=== PATIENT | male | born 1960 | race Caucasian/White ===

== ENCOUNTER → 2016-05-31 | Outpatient (CLI) | payer BC ==
[2016-05-31 09:18] VITALS: BMI 34.7
== END | disposition home or self-care (01) ==
LOC: MNTWWP 08:47
PROVIDERS: ATTEND Internal Medicine
DX: E66.9 Obesity, unspecified (principal); Z68.34 Body mass index [BMI] 34.0-34.9, adult

== ENCOUNTER → 2018-03-14 | Outpatient (CLI) | payer OTHER ==
--- NOTE | 2018-03-15 07:40 | US ---
EXAMINATION TYPE: US kidneys/renal and bladder DATE OF EXAM: 03/14/2018 COMPARISON: NONE CLINICAL HISTORY: R31.21 MICROSCOPIC HEMATURIA. EXAM MEASUREMENTS: Right Kidney: 12.2 x 6.4 x 5.1 cm Left Kidney: 12.1 x 4.7 x 5.1 cm Right Kidney: multiple echogenic foci largest measuring 0.5 x 0.3 x 0.5cm, probable kidney stones Left Kidney: tiny echogenic foci, possible stones vs calcified arteries Bladder: wnl Bilateral Jets seen: Yes Normal Post Void Residual: There is no evidence for hydronephrosis at this point in time. No masses are identified. The urinar y bladder is anechoic. Bilateral ureteral jets are seen. IMPRESSION: Bilateral nonobstructing nephrolithiasis.
== END | disposition home or self-care (01) ==
LOC: RADUSWWP 15:54
PROVIDERS: ATTEND Internal Medicine
DX: N20.0 Calculus of kidney (principal)
CPT/HCPCS: 76770

== ENCOUNTER → 2019-04-23 | Outpatient (CLI) | payer OTHER ==
--- NOTE | 2019-04-23 09:44 | CT ---
EXAMINATION TYPE: CT urogram wo/w con DATE OF EXAM: 04/23/2019 COMPARISON: Renal ultrasound March 14, 2018. HISTORY: hematuria CT DLP: 2820 mGycm, Automated Exposure Control for Dose Reduction was Utilized. CONTRAST: CT scan of the abdomen and pelvis is performed without oral and without and with IV Contrast, patient injected with 100 mL of Isovue 300. Urogram protocol with 3-D reconstructed images on independent Wo rkstation and reviewed. FINDINGS: KUB: Noncontrast images show 9 mm calculus lower pole level coronal image 84. Postcontrast images maurice w symmetrical medullary uptake and excretion without hydronephrosis seen bilaterally. Occasional punc hernandez hypodense focus right kidney for reference coronal image 94 series 16, 2 lesions are present, th ey are too small to further characterize but presumed Benign. Visualized portion of both ureters show no suspicious dilatation calculus. Bladder within normal limits in the anterior midline of the pelvi s. LUNG BASES: No significant abnormality is appreciated. LIVER/GB: There is large roughly 2.6 cm calculus in nondistended gallbladder. Forming inflammatory ch leonidas noted. PANCREAS: No significant abnormality is seen. SPLEEN: No significant abnormality is seen. ADRENALS: No significant abnormality is seen. BOWEL: Surgical sutures from appendectomy at base of cecum. PROSTATE/SEMINAL VESICLES: Enlarged prostate gland consistent with BPH. LYMPH NODES: No greater than 1cm abdominal or pelvic lymph nodes are appreciated. OSSEOUS STRUCTURES: No significant abnormality is seen. OTHER: Asymmetric small fat-containing right inguinal hernia. IMPRESSION: 1. There is a 9 mm nonobstructing calculus lower pole right kidney likely accounting for patient's sy mptoms of hematuria.
== END | disposition home or self-care (01) ==
LOC: RADCTMAIN 08:17
PROVIDERS: ATTEND Urology
DX: N20.0 Calculus of kidney (principal); Z88.3 Allergy status to other anti-infective agents
CPT/HCPCS: 74178; 74400

== ENCOUNTER → 2019-05-11 | Outpatient (CLI) | payer OTHER ==
[2019-05-11 10:28] LABS: Basophils # (A) 0.1 k/uL (0-0.2); Basophils % (A) 1 %; Eosinophils # (A) 0.1 k/uL (0-0.7); Eosinophils % (A) 2 %; HCT 45.6 % (39.0-53.0); HGB 15.5 gm/dL (13.0-17.5); Lymphocytes # (A) 1.3 k/uL (1.0-4.8); Lymphocytes % (A) 23 %; MCH 30.1 pg (25.0-35.0); MCV 88.4 fL (80.0-100.0); Mean Platelet Volume 7.2; Monocytes # (A) 0.4 k/uL (0-1.0); Monocytes % (A) 7 %; Neutrophils # (A) 3.8 k/uL (1.3-7.7); Neutrophils % (A) 65 %; Platelet Count 228 k/uL (150-450); RBC 5.16 m/uL (4.30-5.90); WBC 5.7 k/uL (3.8-10.6)
[2019-05-11 10:30] LABS: African American GFR (CKD) >90 (>60 ml/min/1.73 sqM); Anion Gap 6 mmol/L; Blood Urea Nitrogen 22 mg/dL (9-20); Carbon Dioxide 26 mmol/L (22-30); Chloride 109 mmol/L (98-107); Non-African American GFR(CKD) 84 (>60 ml/min/1.73 sqM); Potassium 4.1 mmol/L (3.5-5.1); Sodium 141 mmol/L (137-145)
== END | disposition home or self-care (01) ==
LOC: LABPAT 09:47
PROVIDERS: ATTEND Urology
DX: Z01.812 Encounter for preprocedural laboratory examination (principal); N20.0 Calculus of kidney
CPT/HCPCS: 36415; 80051; 82565; 84520; 85025

== ENCOUNTER 2019-05-13 12:03 | Day surgery (SDC) | payer OTHER ==
[2019-05-10 09:58] VITALS: BMI 31.7
--- NOTE | 2019-05-10 12:40 | P.HPIHPCON ---
History of Present Illness H&P Date: 05/13/19 Chief Complaint: right renal calculi Mr. Jacobs is 58 yo male with hx of 9mm right sided lower pole renal calculi, That was seen on CT Urogram for microscopic hematuria. I discussed with him the option of observation vs ESWl vs ureteroscopy. He elected to proceed with right sided ESWL. I discussed with him the risk of bleeding, infection, renal hematoma. Also discussed risk from anesthesia which included heart attack, stroke and blood clots. He understood all risks and agreed to proceed with R sided ESWL Consent for Procedure: I have explained the operation/procedure to the patient, including the risks, benefits, side effects, alternative therapies (including not receiving the proposed treatment or service), the likelihood of the patient achieving his/her goals, and potential recuperation problems for the procedure/sedation/analgesia, as well as any blood products, if indicated. I also explained to the patient the risks, benefits and side effects of the alternatives, as well as the risks related to not receiving the proposed procedure, care, treatment, or services. - Constitutional Constitutional: Denies chills, Denies fever - Respiratory Respiratory: Denies cough, Denies dyspnea - Gastrointestinal Gastrointestinal: Denies abdominal pain Past Medical History Past Medical History: Hypertension, Pneumonia, Prostate Disorder Additional Past Medical History / Comment(s): CROHNS DISEASE History of Any Multi-Drug Resistant Organisms: None Reported Past Surgical History: Bowel Resection Past Anesthesia/Blood Transfusion Reactions: No Reported Reaction Past Psychological History: No Psychological Hx Reported Smoking Status: Former smoker Past Alcohol Use History: Rare Past Drug Use History: None Reported - Past Family History Mother Family Medical History: Deep Vein Thrombosis (DVT) Father Family Medical History: Congestive Heart Failure (CHF) Brother(s) Family Medical History: CVA/TIA Medications and Allergies Home Medications Medication Instructions Recorded Confirmed Type Cetirizine HCl 10 mg PO DAILY 07/08/14 05/10/19 History Nf-Losartan Dose Unknown 1 tab PO DAILY 05/10/19 05/10/19 History Tamsulosin HCl [Flomax] 0.4 mg PO DAILY 05/10/19 05/10/19 History Allergies Allergy/AdvReac Type Severity Reaction Status Date / Time Iodinated Contrast Media Allergy Rash/Hives Verified 05/10/19 09:51 Surgical - Exam - General well developed, well nourished, no distress, no pain - Respiratory normal expansion, normal respiratory effort - Abdomen Abdomen: soft, non tender, no distended - Psychiatric oriented to time, oriented to person, oriented to place Assessment and Plan Assessment: 58 yo male with hx of 9 mm right sided renal calculi -OR for R ESWL
[2019-05-13 12:33] VITALS: TEMP 97
[2019-05-13] MEDS ORDERED: LACTATED RINGERS 1,000 ML IV ONE (12:33)
--- NOTE | 2019-05-13 12:34 | XR ---
KUB HISTORY: Preprocedure lithotripsy, renal stone Frontal KUB and 2 images correlated to prior CT 04/23/2019 Calcified gallstone present in the right upper quadrant. The posterior nonobstructive calculus within the inferior pole right kidney is again seen and measures approximately 1 cm in transverse dimension . Lung bases are clear. No evident bowel obstruction or pneumoperitoneum. IMPRESSION: Right-sided nephrolithiasis.
[2019-05-13] MEDS ORDERED: fentaNYL (PF) 50 MCG/ML 2 ML AMP ONE (12:47)
[2019-05-13] MEDS ORDERED: PROPOFOL 10 MG/ML 20 ML VIAL IV ONE (12:47)
[2019-05-13] MEDS ORDERED: SUCCINYLCHOLINE CHLORIDE 100 MG/5 ML SYR IV ONE (12:47)
[2019-05-13] MEDS ORDERED: MIDAZOLAM 2 MG/2 ML VIAL ONE (12:47)
[2019-05-13] MEDS ORDERED: KETAMINE 10 MG/ML 20 ML VIAL ONE (12:47)
--- NOTE | 2019-05-13 13:38 | P.OP ---
Date of Procedure: 05/13/19 Preoperative Diagnosis: Right renal calculus Postoperative Diagnosis: Right renal calculus Procedure(s) Performed: Extracorporal shock wave lithotripsy Anesthesia: MAC Surgeon: Jaime Celeste Estimated Blood Loss (ml): 0 Pathology: none sent Condition: stable Disposition: PACU Indications for Procedure: The patient is a 58-year-old male who was recently discovered to have a 6 x 9 mm calculus in the lower pole of the right kidney. Treatment options were reviewed with and the patient elected to proceed with ESWL. Description of Procedure: Patient was taken the operating suite and placed on the fluoroscopy table in the supine position. The right renal calculus was localized using biplanar fluoroscopy. Intravenous sedation was given. Lithotripsy was performed using the Dornier compact delta unit. Patient received 2500 shocks at level 5 at 80/min. A 2 minute pause occurred after 200 shocks. After approximately 900 shocks it became apparent that there was too much movement with respiration and at this point the procedure was paused and general anesthesia via orotracheal intubation was instituted. After this point there appeared to be good fragmentation of the calculus. Anesthesia was reversed and the patient was returned to the recovery room awake and in satisfactory condition. He'll be seen back in follow-up in 1 week at which time a KUB will be obtained.
[2019-05-13 14:21] VITALS: RESP 16
[2019-05-13 15:07] VITALS: BP 156/94; PULSE 85
== END 2019-05-13 15:28 | disposition home or self-care (01) ==
LOC: ORWHC2ENDO 12:03
PROVIDERS: ATTEND Urology
DX: N20.0 Calculus of kidney (principal); I10 Essential (primary) hypertension; Z87.01 Personal history of pneumonia (recurrent); Z87.19 Personal history of other diseases of the digestive system; Z90.49 Acquired absence of other specified parts of digestive tract; Z87.891 Personal history of nicotine dependence; Z82.49 Family history of ischemic heart disease and other diseases of the circulatory system; Z79.899 Other long term (current) drug therapy; Z91.041 Radiographic dye allergy status
CPT/HCPCS: 74018; 50590; J2250; J3010; J0330; J2704

== ENCOUNTER → 2019-05-18 | Outpatient (CLI) | payer OTHER ==
--- NOTE | 2019-05-18 19:31 | XR ---
KUB HISTORY: N 20.0, right-sided kidney stone, follow-up lithotripsy Frontal KUB and 2 images correlated prior exam 05/13/[address] 04/23/2019 Large calcification in the right upper quadrant is a stable gallstone. The calcification over the low er pole the right kidney shows an irregular appearance consistent with prior lithotripsy, stone measu res approximately 1 mm in greatest dimension. Postop changes are noted in the right hemiabdomen. IMPRESSION: Partial fragmentation suspected in the lower pole right renal stone.
== END | disposition home or self-care (01) ==
LOC: RAD 10:49
PROVIDERS: ATTEND Urology
DX: N20.0 Calculus of kidney (principal); Z98.890 Other specified postprocedural states
CPT/HCPCS: 74018

== ENCOUNTER 2019-05-19 12:42 | Emergency (ER) | payer OTHER ==
[2019-05-19 12:46] VITALS: RESP 18
[2019-05-19] MEDS ORDERED: SODIUM CHLORIDE 0.9% 500 ML 500 ML IV STA ×2 (12:57→14:04)
[2019-05-19] MEDS ORDERED: ONDANSETRON 4 MG/2 ML VIAL IVP STA (12:57)
[2019-05-19] MEDS ORDERED: HYDROmorphone 0.5 MG/0.5 ML SYRINGE IVP STA ×2 (12:57→16:15)
--- NOTE | 2019-05-19 13:22 | ED ---
General Adult HPI - General Chief complaint: Back Pain/Injury Stated complaint: Abd pain Source: patient, RN notes reviewed Mode of arrival: wheelchair Limitations: no limitations - History of Present Illness Initial comments: 59-year-old male presents to the emergency department for a chief complaint of right flank pain. Patient states that this became severe about 3 hours ago. Patient had lithotripsy done [address] Celeste for a 9 mm stone in the right kidney. Patient states he has been passing small pieces of the stone. States he has not had any difficulties or pain until today. States he is urinating normally. Admits to nausea at this time. Denies fevers or chills.Patient has no other complaints at this time including shortness of breath, chest pain, abdominal pain, headache, or visual changes. - Related Data Home Medications Medication Instructions Recorded Confirmed Cetirizine HCl 10 mg PO DAILY 07/08/14 05/13/19 Tamsulosin HCl [Flomax] 0.4 mg PO DAILY 05/10/19 05/13/19 Losartan [Cozaar] 50 mg PO DAILY 05/13/19 05/13/19 Previous Rx's Medication Instructions Recorded Acetaminophen-Codeine 300-30mg 1 tab PO Q6H PRN #8 tablet 05/13/19 [Tylenol w/codeine #3] Tamsulosin [Flomax] 0.4 mg PO DAILY #7 cap 05/13/19 HYDROcodone/APAP 5-325MG [Oliver 1 tab PO Q6HR PRN #10 tab 05/19/19 5-325] Ondansetron [Zofran ODT] 4 mg PO Q8HR PRN #15 tab 05/19/19 Allergies Allergy/AdvReac Type Severity Reaction Status Date / Time Iodinated Contrast Media Allergy Rash/Hives Verified 05/10/19 09:51 Review of Systems ROS Statement: Those systems with pertinent positive or pertinent negative responses have been documented in the HPI. ROS Other: All systems not noted in ROS Statement are negative. Past Medical History Past Medical History: Hypertension, Pneumonia, Prostate Disorder Additional Past Medical History / Comment(s): CROHNS DISEASE History of Any Multi-Drug Resistant Organisms: None Reported Past Surgical History: Bowel Resection Past Anesthesia/Blood Transfusion Reactions: No Reported Reaction Past Psychological History: No Psychological Hx Reported Smoking Status: Former smoker Past Alcohol Use History: Rare Past Drug Use History: None Reported - Past Family History Mother Family Medical History: Deep Vein Thrombosis (DVT) Father Family Medical History: Congestive Heart Failure (CHF) Brother(s) Family Medical History: CVA/TIA General Exam Limitations: no limitations General appearance: alert, in no apparent distress Head exam: Present: atraumatic, normocephalic, normal inspection Eye exam: Present: normal appearance, PERRL, EOMI. Absent: scleral icterus, conjunctival injection, periorbital swelling ENT exam: Present: normal exam, mucous membranes moist Neck exam: Present: normal inspection, full ROM. Absent: tenderness, meningismus, lymphadenopathy Respiratory exam: Present: normal lung sounds bilaterally. Absent: respiratory distress, wheezes, rales, rhonchi, stridor Cardiovascular Exam: Present: regular rate, normal rhythm, normal heart sounds. Absent: systolic murmur, diastolic murmur, rubs, gallop, clicks GI/Abdominal exam: Present: soft, normal bowel sounds. Absent: distended, tenderness, guarding, rebound, rigid Back exam: Present: CVA tenderness (R). Absent: CVA tenderness (L) Neurological exam: Present: alert Course Vital Signs 05/19/19 12:43 Temperature 98.0 F Pulse Rate 77 Respiratory 18 Rate Blood Pressure 182/104 O2 Sat by Pulse 98 Oximetry Medical Decision Making - Medical Decision Making CBC unremarkable. CMP shows minimal elevation in creatinine 1.28. Patient given fluids. X-ray was repeated which did show an unchanged 8 mm right renal calculus. Patient is feeling better at this time. Patient reports Dr. Celeste did lithotripsy on Monday and he has follow-up with Dr. Gutierrez. Dr. Evans evaluated patient who prefers to be discharged home. Dr Evans spoke with Dr. Celeste. Recommends putting patient on Oliver and having him follow-up and return if he has any worsening symptoms. - Lab Data Result diagrams: 05/19/19 13:07 05/19/19 13:07 Lab Results 05/19/19 05/19/19 05/19/19 Range/Units 13:07 13:07 14:15 WBC 7.8 (3.8-10.6) k/uL RBC 5.35 (4.30-5.90) m/uL Hgb 15.9 (13.0-17.5) gm/dL Hct 46.3 (39.0-53.0) % MCV 86.7 (80.0-100.0) fL MCH 29.8 (25.0-35.0) pg MCHC 34.4 (31.0-37.0) g/dL RDW 12.9 (11.5-15.5) % Plt Count 292 (150-450) k/uL Neutrophils % 68 % Lymphocytes % 19 % Monocytes % 7 % Eosinophils % 2 % Basophils % 1 % Neutrophils # 5.3 (1.3-7.7) k/uL Lymphocytes # 1.5 (1.0-4.8) k/uL Monocytes # 0.5 (0-1.0) k/uL Eosinophils # 0.2 (0-0.7) k/uL Basophils # 0.1 (0-0.2) k/uL Sodium 141 (137-145) mmol/L Potassium 4.2 (3.5-5.1) mmol/L Chloride 109 H (98-107) mmol/L Carbon Dioxide 24 (22-30) mmol/L Anion Gap 8 mmol/L BUN 25 H (9-20) mg/dL Creatinine 1.28 H (0.66-1.25) mg/dL Est GFR (CKD-EPI)AfAm 69 (>60 ml/min/1.73 sqM) Est GFR (CKD-EPI)NonAf 60 (>60 ml/min/1.73 sqM) Glucose 107 H (74-99) mg/dL Calcium 9.2 (8.4-10.2) mg/dL Total Bilirubin 0.6 (0.2-1.3) mg/dL AST 28 (17-59) U/L ALT 30 (4-49) U/L Alkaline Phosphatase 57 (38-126) U/L Total Protein 7.0 (6.3-8.2) g/dL Albumin 4.1 (3.5-5.0) g/dL Amylase 91 (30-110) U/L Lipase 113 (23-300) U/L Urine Color Light Red Urine Appearance Cloudy (Clear) Urine pH 6.0 (5.0-8.0) Ur Specific [place] 1.026 (1.001-1.035) Urine Protein 2+ H (Negative) Urine Glucose (UA) Negative (Negative) Urine Ketones Trace H (Negative) Urine Blood Large H (Negative) Urine Nitrite Negative (Negative) Urine Bilirubin Negative (Negative) Urine Urobilinogen <2.0 (<2.0) mg/dL Ur Leukocyte Esterase Trace H (Negative) Urine RBC >182 H (0-5) /hpf Urine WBC 3 (0-5) /hpf Urine Mucus Moderate H (None) /hpf Urine Yeast (Budding) Many H (None) /hpf Disposition Clinical Impression: Flank pain Disposition: HOME SELF-CARE Condition: Good Instructions (If sedation given, give patient instructions): Kidney Stones (ED) Additional Instructions: Please follow up with primary care as urology as soon as possible. Take Oliver for pain. Take Zofran as needed for nausea. Return to the emergency department if you have any worsening symptoms. Prescriptions: HYDROcodone/APAP 5-325MG [Oliver 5-325] 1 tab PO Q6HR PRN #10 tab PRN Reason: Pain Ondansetron [Zofran ODT] 4 mg PO Q8HR PRN #15 tab PRN Reason: Nausea Is patient prescribed a controlled substance at d/c from ED?: Yes When asked, does pt state using other controlled substances?: No If prescribed controlled substance>3 days was MAPS reviewed?: Prescribed <3 Days If opioid is for acute pain is fill amount 7 days or less?: Yes If Rx opioid, was Start Talking consent form obtained?: Yes Referrals: Sunil Gallardo MD [Primary Care Provider] - 1-2 days Alberto Gutierrez MD [STAFF PHYSICIAN] - 1-2 days Time of Disposition: 16:46
[2019-05-19 13:25] LABS: Albumin 4.1 g/dL (3.5-5.0); Calcium 9.2 mg/dL (8.4-10.2); Potassium 4.2 mmol/L (3.5-5.1); Total Bilirubin 0.6 mg/dL (0.2-1.3)
[2019-05-19 13:30] LABS: Basophils # (A) 0.1 k/uL (0-0.2); Basophils % (A) 1 %; Eosinophils # (A) 0.2 k/uL (0-0.7); Eosinophils % (A) 2 %; HCT 46.3 % (39.0-53.0); HGB 15.9 gm/dL (13.0-17.5); Lymphocytes # (A) 1.5 k/uL (1.0-4.8); Lymphocytes % (A) 19 %; MCH 29.8 pg (25.0-35.0); MCHC 34.4 g/dL (31.0-37.0); MCV 86.7 fL (80.0-100.0); Mean Platelet Volume 7.2; Monocytes # (A) 0.5 k/uL (0-1.0); Monocytes % (A) 7 %; Neutrophils # (A) 5.3 k/uL (1.3-7.7); Neutrophils % (A) 68 %; Platelet Count 292 k/uL (150-450); RBC 5.35 m/uL (4.30-5.90); RDW 12.9 % (11.5-15.5); WBC 7.8 k/uL (3.8-10.6)
--- NOTE | 2019-05-19 14:26 | XR ---
EXAMINATION TYPE: XR KUB DATE OF EXAM: 05/19/2019 COMPARISON: 05/18/2019 HISTORY: Lithotripsy TECHNIQUE: 2 views upright FINDINGS: There is 2.7 cm calcification over the right upper quadrant that could be calcified gallsto ne. There is 8 mm calculus over the lower pole right kidney. There are some surgical clips apparently in the region of the ascending colon. I see no other calculi over the kidneys. There is no evidence of a mass. There is no free air. Lung bases appear clear. IMPRESSION: Right renal calculus unchanged. Large calcified gallstone.
[2019-05-19 14:41] LABS: Appearance,Urine Cloudy (Clear); Bilirubin,Urine Negative (Negative); Blood,Urine Large (Negative); Budding Yeast,Urine Many /hpf; Color,Urine Light Red; Glucose,Urine (UA) Negative (Negative); Ketones,Urine Trace (Negative); Leukocyte Esterase,Urine Trace (Negative); Mucus,Urine Moderate /hpf; Nitrite,Urine Negative (Negative); Protein,Urine 2+ (Negative); RBC,Urine >182 /hpf (0-5); Specific Gravity,Urine 1.026 (1.001-1.035); Urobilinogen,Urine <2.0 mg/dL (<2.0); WBC,Urine 3 /hpf (0-5)
[2019-05-19 17:27] VITALS: BP 145/88; PULSE 90; TEMP 98.1
== END 2019-05-19 17:15 | disposition home or self-care (01) ==
LOC: EC 12:42
DX: R10.9 Unspecified abdominal pain (principal); R11.0 Nausea; N20.0 Calculus of kidney; I10 Essential (primary) hypertension; Z79.899 Other long term (current) drug therapy; Z91.048 Other nonmedicinal substance allergy status; Z87.891 Personal history of nicotine dependence
CPT/HCPCS: 36415; 80053; 82150; 83690; 85025; 81001; 74018; 99284; 96374; 96375; 96376; J2405; J1170

== ENCOUNTER → 2019-05-20 | Outpatient (CLI) | payer OTHER ==
[2019-05-20 11:26] LABS: Basophils # (A) 0.1 k/uL (0-0.2); Basophils % (A) 1 %; Eosinophils # (A) 0.2 k/uL (0-0.7); Eosinophils % (A) 2 %; HCT 44.8 % (39.0-53.0); HGB 15.2 gm/dL (13.0-17.5); Lymphocytes # (A) 1.3 k/uL (1.0-4.8); Lymphocytes % (A) 14 %; MCH 29.8 pg (25.0-35.0); MCHC 33.9 g/dL (31.0-37.0); Mean Platelet Volume 7.2; Monocytes # (A) 0.5 k/uL (0-1.0); Monocytes % (A) 6 %; Neutrophils # (A) 7.2 k/uL (1.3-7.7); Neutrophils % (A) 77 %; Platelet Count 259 k/uL (150-450); RBC 5.09 m/uL (4.30-5.90); RDW 12.9 % (11.5-15.5); WBC 9.3 k/uL (3.8-10.6)
[2019-05-20 11:37] LABS: Calcium 9.2 mg/dL (8.4-10.2); Potassium 4.2 mmol/L (3.5-5.1)
[2019-05-20 11:44] LABS: Appearance,Urine Clear (Clear); Bilirubin,Urine Negative (Negative); Blood,Urine Moderate (Negative); Color,Urine Yellow; Glucose,Urine (UA) Negative (Negative); Ketones,Urine Negative (Negative); Leukocyte Esterase,Urine Negative (Negative); Mucus,Urine Rare /hpf; Nitrite,Urine Negative (Negative); PH, Urine 5.5 (5.0-8.0); Protein,Urine 1+ (Negative); RBC,Urine 5 /hpf (0-5); Specific Gravity,Urine 1.013 (1.001-1.035); Squamous Epithelial Cell,Urine <1 /hpf (0-4); Urobilinogen,Urine <2.0 mg/dL (<2.0); WBC,Urine 1 /hpf (0-5)
== END | disposition home or self-care (01) ==
LOC: LABPAT 10:50
PROVIDERS: ATTEND Urology
DX: Z01.812 Encounter for preprocedural laboratory examination (principal); N20.0 Calculus of kidney
CPT/HCPCS: 36415; 80048; 81001; 85025

== ENCOUNTER 2019-05-22 11:15 | Day surgery (SDC) | payer OTHER ==
[2019-05-21 08:53] VITALS: BMI 33.3
--- NOTE | 2019-05-21 16:58 | P.HPIHPCON ---
History of Present Illness H&P Date: 05/22/19 Chief Complaint: Right-sided renal stone This is a 58-year-old male with history of 9 mm right-sided renal stone. He underwent ESWL on May 13. KUB on October 18 demonstrated persistent stone, he presented to the ED with complaint of right flank pain. He indicated he has not passed any significant fragments. Discussed with him given his symptoms and persistent pain the option of repeat ESWL versus ureteroscopy. He agreed to proceed with ureteroscopy, with holmium laser lithotripsy. I Discussed with him the risk which include but not limited to bleeding infection injury to the ureter. I also discussed with him the risk from anesthesia which includes but not limited to heart attack strokes blood clots and even loss of life she understood all the risk and agree to proceed with right-sided ureteroscopy Consent for Procedure: I have explained the operation/procedure to the patient, including the risks, benefits, side effects, alternative therapies (including not receiving the proposed treatment or service), the likelihood of the patient achieving his/her goals, and potential recuperation problems for the procedure/sedation/analgesia, as well as any blood products, if indicated. I also explained to the patient the risks, benefits and side effects of the alternatives, as well as the risks related to not receiving the proposed procedure, care, treatment, or services. Past Medical History Past Medical History: Hypertension, Pneumonia, Prostate Disorder Additional Past Medical History / Comment(s): CROHNS DISEASE, kidney stone History of Any Multi-Drug Resistant Organisms: None Reported Past Surgical History: Bowel Resection Past Anesthesia/Blood Transfusion Reactions: No Reported Reaction Past Psychological History: No Psychological Hx Reported Smoking Status: Former smoker Past Alcohol Use History: Rare Past Drug Use History: None Reported - Past Family History Mother Family Medical History: Deep Vein Thrombosis (DVT) Father Family Medical History: Congestive Heart Failure (CHF) Brother(s) Family Medical History: CVA/TIA Medications and Allergies Home Medications Medication Instructions Recorded Confirmed Type Cetirizine HCl 10 mg PO DAILY 07/08/14 05/13/19 History Tamsulosin HCl [Flomax] 0.4 mg PO DAILY 05/10/19 05/13/19 History Losartan [Cozaar] 50 mg PO DAILY 05/13/19 05/13/19 History HYDROcodone/APAP 5-325MG [[place] 1 tab PO Q6HR PRN #10 tab 05/19/19 Rx 5-325] Ondansetron [Zofran ODT] 4 mg PO Q8HR PRN #15 tab 05/19/19 Rx Allergies Allergy/AdvReac Type Severity Reaction Status Date / Time Iodinated Contrast Media Allergy Rash/Hives Verified 05/21/19 08:46 Surgical - Exam - General well developed, well nourished, no distress, moderate pain - Respiratory normal expansion, normal respiratory effort - Abdomen Abdomen: soft, non tender - Psychiatric oriented to time, oriented to person, oriented to place Assessment and Plan Assessment: 59-year-old male with 9 mm right-sided renal stone -Or for right-sided ureteroscopy, holmium laser lithotripsy and stent placement
[~2019-05-22 11:15] MED LIST: DEXAMETHASONE SOD PHOSPHATE 10 MG/ML 1 ML VIAL IV ONE; HYDROmorphone 0.5 MG/0.5 ML SYRINGE IVP PRN; LACTATED RINGERS 1,000 ML IV SCH; LIDOCAINE 1% 20 ML VIAL (10MG/ML) FOR IV START INTRADERMA PRN; ONDANSETRON 4 MG/2 ML VIAL IVP ONE
--- NOTE | 2019-05-22 11:54 | XR ---
EXAMINATION TYPE: XR KUB DATE OF EXAM: 05/22/2019 11:35 AM CLINICAL HISTORY: Preoperative evaluation of renal calculi. TECHNIQUE: Single supine KUB image of the abdomen is obtained. COMPARISON: 05/19/2019 FINDINGS: Calcified probable gallstone is seen in the right upper quadrant. Right-sided calculus morteza ures approximately 1.2 cm overlying the renal shadow. Curvilinear calcifications near the cecum are p resumed to be related to prior bowel surgery. Lung bases are well aerated. Osseous structures are int act. IMPRESSION: 1.2 cm calculus overlying the right renal shadow and probable gallstone.
[2019-05-22] MEDS ORDERED: MIDAZOLAM 2 MG/2 ML VIAL IVP ONE (13:01)
[2019-05-22] MEDS ORDERED: fentaNYL (PF) 50 MCG/ML 2 ML AMP IVP ONE (13:01)
[2019-05-22] MEDS ORDERED: MEPERIDINE 50 MG/ML SYRINGE IVP ONE (14:30)
[2019-05-22] MEDS ORDERED: PHENYLEPHRINE-0.9% NACL SYG 1 MG/10 ML SYRINGE ONE (15:34)
[2019-05-22] MEDS ORDERED: MIDAZOLAM 2 MG/2 ML VIAL ONE (15:34)
[2019-05-22] MEDS ORDERED: PROPOFOL 10 MG/ML 20 ML VIAL IV ONE (15:34)
[2019-05-22] MEDS ORDERED: fentaNYL (PF) 50 MCG/ML 2 ML AMP ONE (15:34)
[2019-05-22] MEDS ORDERED: SUCCINYLCHOLINE CHLORIDE 100 MG/5 ML SYR IV ONE (15:34)
[2019-05-22] MEDS ORDERED: HYDROmorphone (PF) 1 MG/ML ONE (15:34)
[2019-05-22] MEDS ORDERED: LIDOCAINE 1% INJ 10MG/ML (20 ML MDV) ONE (15:34)
[2019-05-22] MEDS ORDERED: LACTATED RINGERS 1,000 ML IV ONE (15:46)
[2019-05-22] MEDS ORDERED: IOPAMIDOL-300 50ML BTL MISCELLANE ONE (16:10)
[2019-05-22 18:14] VITALS: TEMP 97.3
--- NOTE | 2019-05-22 18:26 | P.OP ---
Date of Procedure: 05/22/19 Preoperative Diagnosis: Right-sided renal calculi Postoperative Diagnosis: Right side to renal calculi, right-sided ureteral calculi Procedure(s) Performed: Cystoscopy, right ureteroscopy, ureteral balloon dilation, holmium laser lithotripsy, stone basketing, retrograde pyelogram and stent placement Implants: 6-[place] by 26 cm stent Anesthesia: CYNTHIA Surgeon: Alberto Gutierrez Estimated Blood Loss (ml): 5 Pathology: other (Right renal calculi, for chemical analysis) Condition: stable Disposition: PACU Indications for Procedure: This is a 58-year-old male with history of 9 mm right-sided renal stone. He underwent ESWL on May 13. KUB on October 18 demonstrated persistent stone, he presented to the ED with complaint of right flank pain. He indicated he has not passed any significant fragments. Discussed with him given his symptoms and persistent pain the option of repeat ESWL versus ureteroscopy. He agreed to proceed with ureteroscopy, with holmium laser lithotripsy. I Discussed with him the risk which include but not limited to bleeding infection injury to the ureter. I also discussed with him the risk from anesthesia which includes but not limited to heart attack strokes blood clots and even loss of life she understood all the risk and agree to proceed with right-sided ureteroscopy Operative Findings: Multiple stone fragments along the distal ureter, narrowed right ureteral orifice Multiple stone fragments in the lower and midpole Description of Procedure: The patient was brought to the operating room, general anesthesia was induced. He was prepped and draped in sterile fashion and placed in a dorsal lithotomy position. Cystoscopy fitted with a 22 sheath was inserted per urethra, cystoscopy was performed showed no abnormality within the bladder. Next attention was carried to the right ureteral orifice, and of note the ureteral orifice was of narrow caliber. Next a 6-[place] ureteral catheter was passed up the right ureteral orifice and retrograde pyelogram was performed which showed multiple filling defect in the distal ureter with hydronephrosis. 0.035 sensor wire was advanced through the catheter up into the renal pelvis. Next balloon dilator was passed over the wire the ureteral orifice was dilated using the balloon dilator. The balloon dilator was withdrawn with the wire in place. At this time multiple stone fragments were seen dropping out of the right ureteral orifice. Next the semirigid ureteroscope was inserted per right ureteral orifice and advance up to the proximal ureter no stone was visualized along the course of the ureter there were multiple blood clots throughout the ureter pullback ureteroscopy confirmed no additional stones. At this time a 1214 [place] access sheath was advanced over the wire into the proximal ureter. A f lexibile ureteroscope was advanced through the sheath up into the kidney. Renoscopy was performed which showed large amount of blood clots within the collecting system. Additionally there were stones within the lower and the midpole, there were multiple fragments approximately there was more than 20 fragments that were encountered. Larger fragments were removed using the Oliverio stone basket. Additional smaller stone fragments were further dusted using the holmium laser. Repeat it renoscopy demonstrated no injury to the kidney or any sizable fragments. Pullback ureteroscopy confirmed no additional ureteral stone or injury to the ureter. Next a cystoscope was inserted and the right ureteral orifice was visualized and intubated with a 0.035 sensor wire. Next a ureteral stent was passed over the wire and proximal curl was visualized under fluoroscopy and the distal curl was visualized under cystoscopy. The bladder was emptied in the end of the case. The patient was awakened from anesthesia and taken to recovery room in stable condition
[2019-05-22 18:31] VITALS: RESP 16
[2019-05-22] MEDS ORDERED: ENALAPRILAT 1.25 MG/ML 1 ML VIAL IVP ONE (19:14)
[2019-05-22 19:33] VITALS: PULSE 93
[2019-05-22] MEDS ORDERED: IBUPROFEN 200 MG TAB PO ONE (19:41)
[2019-05-22 19:52] VITALS: BP 156/94
--- NOTE | 2019-05-23 08:55 | FL ---
Fluoroscopy HISTORY: Stone removal, stent placement 41 seconds fluoroscopy time supplied to the referring clinician. 2 intraoperative C-arm images docum ent the procedure. See dictated report from urology.
== END 2019-05-22 20:07 | disposition home or self-care (01) ==
LOC: OR 11:15
PROVIDERS: ATTEND Urology
DX: N13.2 Hydronephrosis with renal and ureteral calculous obstruction (principal); I10 Essential (primary) hypertension; K50.90 Crohn's disease, unspecified, without complications; N42.9 Disorder of prostate, unspecified; Z98.890 Other specified postprocedural states; Z79.899 Other long term (current) drug therapy; Z91.041 Radiographic dye allergy status; Z87.891 Personal history of nicotine dependence; Z87.01 Personal history of pneumonia (recurrent); Z82.3 Family history of stroke; Z82.49 Family history of ischemic heart disease and other diseases of the circulatory system
CPT/HCPCS: 82365; 74420; 74018; 52356; C2625; C1894; C1758; J2250; J1100; J2175; J0690; J2405; J2001; J3010; J1170; J2370; J0330; J2704; Q9967

== ENCOUNTER 2019-06-25 11:28 | Inpatient (IN) | payer OTHER ==
[2019-06-25] MEDS ORDERED: HYDROmorphone 1 MG/ML 1 ML SYRINGE IVP STA (11:52)
[2019-06-25] MEDS ORDERED: SODIUM CHLORIDE 0.9% 500 ML 500 ML IV STA (11:52)
--- NOTE | 2019-06-25 11:55 | ED ---
General Adult HPI - General Chief complaint: Nausea/Vomiting/Diarrhea Stated complaint: Abdominal pain Time Seen by Provider: 06/25/19 11:30 Source: patient, RN notes reviewed, old records reviewed Mode of arrival: ambulatory Limitations: no limitations - History of Present Illness Initial comments: This is a 59-year-old male with past medical history significant for high blood pressure and Crohn's disease and patient states he had a bowel resection 27 years ago. Patient's not sure if he has appendix anymore. Patient states yesterday he started having abdominal pain is mostly on the right lower abdomen but there is some discomfort on the left. Patient states he did pass a little stool today and he was nauseated but no vomiting. Patient states he received Zofran and his doctor's office this morning. Patient states in the past he did have a bowel obstruction years ago and this reminds him of that. Patient states his abdomen doesn't appear to be more distended than normal. Patient denies any chest pain difficulty breathing first breath. Patient denies any fever but states he has some chills. Patient denies any lightheadedness or dizziness. Patient denies any black or bloody stools. - Related Data Home Medications Medication Instructions Recorded Confirmed Cetirizine HCl 10 mg PO DAILY 07/08/14 05/22/19 Tamsulosin HCl [Flomax] 0.4 mg PO DAILY 05/10/19 05/22/19 Losartan [Cozaar] 50 mg PO DAILY 05/13/19 05/22/19 Previous Rx's Medication Instructions Recorded HYDROcodone/APAP 5-325MG [[place] 1 tab PO Q6HR PRN #10 tab 05/19/19 5-325] Ondansetron [Zofran ODT] 4 mg PO Q8HR PRN #15 tab 05/19/19 Ibuprofen 600 mg PO Q6HR PRN #20 tablet 05/22/19 Tamsulosin [Flomax] 0.4 mg PO DAILY #14 cap 05/22/19 Allergies Allergy/AdvReac Type Severity Reaction Status Date / Time Iodinated Contrast Media Allergy Rash/Hives Verified 06/25/19 11:35 Review of Systems ROS Statement: Those systems with pertinent positive or pertinent negative responses have been documented in the HPI. ROS Other: All systems not noted in ROS Statement are negative. Past Medical History Past Medical History: Hypertension, Pneumonia, Prostate Disorder Additional Past Medical History / Comment(s): CROHNS DISEASE History of Any Multi-Drug Resistant Organisms: None Reported Past Surgical History: Bowel Resection Additional Past Surgical History / Comment(s): lithotripsy Past Anesthesia/Blood Transfusion Reactions: No Reported Reaction Past Psychological History: No Psychological Hx Reported Smoking Status: Former smoker Past Alcohol Use History: Rare Past Drug Use History: None Reported - Past Family History Mother Family Medical History: Deep Vein Thrombosis (DVT) Father Family Medical History: Congestive Heart Failure (CHF) Brother(s) Family Medical History: CVA/TIA General Exam - General Exam Comments Initial Comments: GENERAL: Patient is well-developed and well-nourished. Patient is nontoxic and well-hydr ated and is in mild distress. ENT: Neck is soft and supple. No significant lymphadenopathy is noted. Oropharynx is clear. Moist mucous membranes. Neck has full range of motion without eliciting any pain. EYES: The sclera were anicteric and conjunctiva were pink and moist. Extraocular movements were intact and pupils were equal round and reactive to light. Eyelids were unremarkable. PULMONARY: Unlabored respirations. Good breath sounds bilaterally. No audible rales rhonchi or wheezing was noted. CARDIOVASCULAR: There is a regular rate and rhythm without any murmurs gallops or rubs. ABDOMEN: Patient has right lower abdominal pain with some right lower quadrant rebound. SKIN: Skin is clear with no lesions or rashes and otherwise unremarkable. NEUROLOGIC: Patient is alert and oriented x3. Cranial nerves II through XII are grossly intact. Motor and sensory are also intact. Normal speech, volume and content. Symmetrical smile. MUSCULOSKELETAL: Normal extremities with adequate strength and full range of motion. No lower extremity swelling or edema. No calf tenderness. LYMPHATICS: No significant lymphadenopathy is noted PSYCHIATRIC: Normal psychiatric evaluation. Limitations: no limitations Course Vital Signs 06/25/19 06/25/19 06/25/19 11:31 11:33 13:18 Temperature 99.0 F Pulse Rate 85 107 H 100 Respiratory 18 20 16 Rate Blood Pressure 131/94 130/79 114/77 O2 Sat by Pulse 96 96 96 Oximetry Medical Decision Making - Medical Decision Making Computed tomography scan shows small bowel obstruction with the transition being at the anastomosis. I had the nurse place an NG tube into the patient. I spoke with Dr. Colmenares agreed to admit the patient admitted the patient - Lab Data Result diagrams: 06/25/19 12:05 06/25/19 12:05 Lab Results 06/25/19 06/25/19 06/25/19 Range/Units 12:05 12:05 12:05 WBC 16.5 H (3.8-10.6) k/uL RBC 5.75 (4.30-5.90) m/uL Hgb 17.2 (13.0-17.5) gm/dL Hct 49.7 (39.0-53.0) % MCV 86.3 (80.0-100.0) fL MCH 29.9 (25.0-35.0) pg MCHC 34.6 (31.0-37.0) g/dL RDW 13.1 (11.5-15.5) % Plt Count 230 (150-450) k/uL Neutrophils % 93 % Lymphocytes % 2 % Monocytes % 3 % Eosinophils % 1 % Basophils % 0 % Neutrophils # 15.3 H (1.3-7.7) k/uL Lymphocytes # 0.3 L (1.0-4.8) k/uL Monocytes # 0.5 (0-1.0) k/uL Eosinophils # 0.1 (0-0.7) k/uL Basophils # 0.0 (0-0.2) k/uL Sodium 138 (137-145) mmol/L Potassium 4.8 (3.5-5.1) mmol/L Chloride 106 (98-107) mmol/L Carbon Dioxide 20 L (22-30) mmol/L Anion Gap 12 mmol/L BUN 34 H (9-20) mg/dL Creatinine 1.48 H (0.66-1.25) mg/dL Est GFR (CKD-EPI)AfAm 58 (>60 ml/min/1.73 sqM) Est GFR (CKD-EPI)NonAf 51 (>60 ml/min/1.73 sqM) Glucose 129 H (74-99) mg/dL Plasma Lactic Acid Ciar[place] 1.1 (0.7-2.0) mmol/L Calcium 9.9 (8.4-10.2) mg/dL Total Bilirubin 1.7 H (0.2-1.3) mg/dL AST 37 (17-59) U/L ALT 40 (4-49) U/L Alkaline Phosphatase 76 (38-126) U/L Total Protein 7.7 (6.3-8.2) g/dL Albumin 4.7 (3.5-5.0) g/dL Amylase 73 (30-110) U/L Lipase 87 (23-300) U/L Urine Color Urine Appearance (Clear) Urine pH (5.0-8.0) Ur Specific [place] (1.001-1.035) Urine Protein (Negative) Urine Glucose (UA) (Negative) Urine Ketones (Negative) Urine Blood (Negative) Urine Nitrite (Negative) Urine Bilirubin (Negative) Urine Urobilinogen (<2.0) mg/dL Ur Leukocyte Esterase (Negative) Urine RBC (0-5) /hpf Urine WBC (0-5) /hpf Ur Squamous Epith Cells (0-4) /hpf Amorphous Sediment (None) /hpf Urine Bacteria (None) /hpf Urine Mucus (None) /hpf 06/25/19 Range/Units 12:30 WBC (3.8-10.6) k/uL RBC (4.30-5.90) m/uL Hgb (13.0-17.5) gm/dL Hct (39.0-53.0) % MCV (80.0-100.0) fL MCH (25.0-35.0) pg MCHC (31.0-37.0) g/dL RDW (11.5-15.5) % Plt Count (150-450) k/uL Neutrophils % % Lymphocytes % % Monocytes % % Eosinophils % % Basophils % % Neutrophils # (1.3-7.7) k/uL Lymphocytes # (1.0-4.8) k/uL Monocytes # (0-1.0) k/uL Eosinophils # (0-0.7) k/uL Basophils # (0-0.2) k/uL Sodium (137-145) mmol/L Potassium (3.5-5.1) mmol/L Chloride (98-107) mmol/L Carbon Dioxide (22-30) mmol/L Anion Gap mmol/L BUN (9-20) mg/dL Creatinine (0.66-1.25) mg/dL Est GFR (CKD-EPI)AfAm (>60 ml/min/1.73 sqM) Est GFR (CKD-EPI)NonAf (>60 ml/min/1.73 sqM) Glucose (74-99) mg/dL Plasma Lactic Acid [place] (0.7-2.0) mmol/L Calcium (8.4-10.2) mg/dL Total Bilirubin (0.2-1.3) mg/dL AST (17-59) U/L ALT (4-49) U/L Alkaline Phosphatase (38-126) U/L Total Protein (6.3-8.2) g/dL Albumin (3.5-5.0) g/dL Amylase (30-110) U/L Lipase (23-300) U/L Urine Color Dark Brown Urine Appearance Turbid (Clear) Urine pH 6.0 (5.0-8.0) Ur Specific [place] 1.037 H (1.001-1.035) Urine Protein 3+ H (Negative) Urine Glucose (UA) Trace H (Negative) Urine Ketones Trace H (Negative) Urine Blood Large H (Negative) Urine Nitrite Negative (Negative) Urine Bilirubin 1+ H (Negative) Urine Urobilinogen 3.0 (<2.0) mg/dL Ur Leukocyte Esterase Trace H (Negative) Urine RBC >182 H (0-5) /hpf Urine WBC 14 H (0-5) /hpf Ur Squamous Epith Cells 4 (0-4) /hpf Amorphous Sediment Occasional H (None) /hpf Urine Bacteria Rare H (None) /hpf Urine Mucus Many H (None) /hpf Disposition Clinical Impression: Small bowel obstruction Disposition: ADMITTED IP TO THIS [facility] Referrals: Sunil Gallardo MD [Primary Care Provider] - 1-2 days Time of Disposition: 14:12
[2019-06-25 12:15] LABS: Basophils % (A) 0 %; Eosinophils # (A) 0.1 k/uL (0-0.7); Eosinophils % (A) 1 %; HCT 49.7 % (39.0-53.0); HGB 17.2 gm/dL (13.0-17.5); Lymphocytes # (A) 0.3 k/uL (1.0-4.8); Lymphocytes % (A) 2 %; MCH 29.9 pg (25.0-35.0); MCHC 34.6 g/dL (31.0-37.0); MCV 86.3 fL (80.0-100.0); Mean Platelet Volume 7.2; Monocytes # (A) 0.5 k/uL (0-1.0); Monocytes % (A) 3 %; Neutrophils # (A) 15.3 k/uL (1.3-7.7); Neutrophils % (A) 93 %; Platelet Count 230 k/uL (150-450); RBC 5.75 m/uL (4.30-5.90); RDW 13.1 % (11.5-15.5); WBC 16.5 k/uL (3.8-10.6)
[2019-06-25] MEDS ORDERED: methylPREDNISolone SOD SUCCI 125 MG/2 ML VIAL IV STA (12:23)
[2019-06-25] MEDS ORDERED: FAMOTIDINE 20 MG/2 ML VIAL IV STA (12:23)
[2019-06-25] MEDS ORDERED: diphenhydrAMINE 50 MG/ML 1 ML VIAL IVP STA (12:23)
[2019-06-25 12:24] LABS: Albumin 4.7 g/dL (3.5-5.0); Calcium 9.9 mg/dL (8.4-10.2); Potassium 4.8 mmol/L (3.5-5.1); Total Bilirubin 1.7 mg/dL (0.2-1.3); Total Protein 7.7 g/dL (6.3-8.2)
[2019-06-25 12:42] LABS: Amorphous Sediment,Urine Occasional /hpf; Appearance,Urine Turbid (Clear); Bacteria,Urine Rare /hpf; Bilirubin,Urine 1+ (Negative); Blood,Urine Large (Negative); Color,Urine Dark Brown; Glucose,Urine (UA) Trace (Negative); Ketones,Urine Trace (Negative); Leukocyte Esterase,Urine Trace (Negative); Mucus,Urine Many /hpf; Nitrite,Urine Negative (Negative); Protein,Urine 3+ (Negative); RBC,Urine >182 /hpf (0-5); Specific Gravity,Urine 1.037 (1.001-1.035); Squamous Epithelial Cell,Urine 4 /hpf (0-4); WBC,Urine 14 /hpf (0-5)
--- NOTE | 2019-06-25 13:49 | CT ---
EXAMINATION TYPE: CT abdomen pelvis w con DATE OF EXAM: 06/25/2019 COMPARISON: 04/23/2019 HISTORY: Abdominal pain, appendicitis CT DLP: 1337.3 mGycm Automated exposure control for dose reduction was used. TECHNIQUE: Helical acquisition of images was performed from the lung bases through the pelvis. CONTRAST: Performed without Oral Contrast and with IV Contrast, patient injected with 100 ml mL of Isovue 300. FINDINGS: LUNG BASES: Minimal left basilar subsegmental atelectasis. LIVER/GB: There are scattered subcentimeter hypoattenuated hepatic lesions that are too small to accu rately characterize as seen on the prior exam and a simple hepatic cyst measuring 1.1 cm. Cholelithia sis is seen. PANCREAS: No significant abnormality is seen. SPLEEN: No significant abnormality is seen. ADRENALS: No significant abnormality is seen. KIDNEYS: Nonobstructing right lower pole 3 mm punctate renal calculus is present as well as dentate h ypoattenuated renal lesions that are too small to accurately characterize. No hydronephrosis of eithe r kidney. FREE AIR: No free air is visualized. ADENOPATHY: No greater than 1 cm short axis lymph node in the abdomen or pelvis. OSSEOUS STRUCTURES: No significant abnormality is seen. BOWEL: Appendix appears surgically absent. There is a severe stricture of the anastomotic site betwe en the terminal ileum in the cecum such as on coronal image 38 and 36 creating proximal small bowel o bstruction. The small bowel measures up to 4.0 cm and is diffusely dilated. There is a focal area of small bowel wall thickening and the left mid abdomen and coronal image 37 related to enteritis of inf lammatory infectious etiology or peristalsis. Similar finding in the left upper abdomen on image 30. OTHER: The prostate gland is enlarged measuring 5.5 cm in transverse dimension. Right inguinal ring i s patulous and fat filled. IMPRESSION: 1. SMALL BOWEL OBSTRUCTION SECONDARY TO AN ANASTOMOTIC STRICTURE AT THE TERMINAL ILEUM AND CECUM. DELISA ENDIX APPEARS SURGICALLY ABSENT. 2. NONOBSTRUCTING 3 MM RIGHT LOWER POLE RENAL CALCULUS.
[2019-06-25] MEDS ORDERED: SODIUM CHLORIDE 0.9% 1,000 ML IV ONE (14:13)
[2019-06-25] MEDS ORDERED: ONDANSETRON 4 MG/2 ML VIAL IVP PRN (14:20)
[2019-06-25] MEDS ORDERED: HYDROmorphone 0.5 MG/0.5 ML SYRINGE IVP PRN (14:20)
--- NOTE | 2019-06-25 15:23 | XR ---
EXAMINATION TYPE: XR chest 1V portable DATE OF EXAM: 06/25/2019 COMPARISON: NONE HISTORY: NG tube placement TECHNIQUE: Single frontal view of the chest is obtained. FINDINGS: NG tube is faintly seen below the diaphragm is suspected to be at the level of the GE junc tion or gastric fundus. Subsegmental lower lobe infiltrate. No pneumothorax or overt failure heart si ze is mildly prominent. IMPRESSION: 1. Limited exam the distal tip of the NG tube is suspected the level of GE junction or gastric fundus . 2. Bilateral lower lobe atelectasis versus infiltrate.
--- NOTE | 2019-06-25 22:11 | P.HPIM ---
History of Present Illness H&P Date: 06/25/19 Chief Complaint: Abdominal pain and distention History of presenting complaint: This is a pleasant 59-year-old patient of Dr. Sunil gore. Chronic stable medical conditions include hypertension, BPH, obesity. Patient has known close disease. 4. Dr. Maryanne Castano. Patient had her pseudobulbar resected. Relevant details close to 27 years ago. Yesterday evening around 10 PM suddenly the abdomen became distended. She developed chills. Started vomiting. Had a bowel movement yesterday. And a small runny stool this morning. Computed tomography scan in the ER showed a small bowel obstruction secondary to anastomotic stricture at the terminal ileum and cecal. NG tube was placed. Surgery and GI was consulted. Since the NG tube patient abdomen is feeling a little bit less distended and less pain. Review of systems: GEN.: Tired chills EYES: None HEENT: None NECK: None RESPIRATORY: None CARDIOVASCULAR: None GASTROINTESTINAL: As above GENITOURINARY: None MUSCULOSKELETAL: None LYMPHATICS: None HEMATOLOGICAL: None PSYCHIATRY: None NEUROLOGICAL: None Past medical history to include: Hypertension, BPH, Crohn's disease Social history: , smoked for about 12 years stopped in 1987. Alcohol rarely. Physical examination: VITAL SIGNS: 99, 107, 20, 130/79, 96% room air GENERAL: BMI 33.3, laying in bed, but tired appearing. EYES: Pupils equal. Conjunctiva normal. HEENT: [External appearance of nose and ears normal, oral cavity dry, NG tube in place. NECK: JVD not raised; masses not palpable. HEART: First and second heart sounds are normal; no edema. LUNGS: Respiratory rate normal; clear to auscultation. ABDOMEN: Soft, slightly distended, minimal tenderness, liver spleen not palpable, no masses palpable. Bowel sounds are present PSYCH: Alert and oriented x3; mood and affect anxiousl. NEUROLOGICAL: Cranial nerves grossly intact; no facial asymmetry, power and sensation grossly intact. LYMPHATICS: No lymph nodes palpable in the axilla and neck INVESTIGATIONS, reviewed in the clinical context: White count 16.5 hemoglobin 13.2 potassium 4.8 bun 34 creatinine 1.48 UA positive for trace leukoesterase negative nitrite RBC Computed tomography scan of the abdomen shows small bowel obstruction at the junction the atrium and cecal Assessment: -This is a patient with Crohn's disease a prior bowel resection. Now presents with acute small bowel obstruction with the lesion being/stricture at the junction of ileum and cecum. -Hypertension -BPH -History of Crohn's disease -Obesity BMI 33.3 -Acute kidney injury likely, prerenal Plan: Patient has NG tube to suction. Feeling better. Give IV fluids DVT prophylaxis. Repeat labs in the morning. We'll GI general surgery. Consulted. Care was discussed with the patient question were answered. Past Medical History Past Medical History: Hypertension, Pneumonia, Prostate Disorder Additional Past Medical History / Comment(s): Chron's dx, colon polyps, BPH, recent R sided nephrolithiasis with surgery, sinus issues. History of Any Multi-Drug Resistant Organisms: None Reported Past Surgical History: Bowel Resection Additional Past Surgical History / Comment(s): 05/13/19 lithotripsy, 05/22/19 lithotripsy/ureteroscopy, bowel resection 27 yrs ago, EGDs, colonoscopies, vasectomy Past Anesthesia/Blood Transfusion Reactions: No Reported Reaction Smoking Status: Former smoker - Past Family History Mother Family Medical History: Deep Vein Thrombosis (DVT) Additional Family Medical History / Comment(s): Mother from a bowel obstruction at the age of 80yrs. Father Family Medical History: Congestive Heart Failure (CHF) Additional Family Medical History / Comment(s): Father of CHF at 80yrs. Brother(s) Family Medical History: CVA/TIA Additional Family Medical History / Comment(s): Brother had a CVA. Bother is living. Medications and Allergies Home Medications Medication Instructions Recorded Confirmed Type Losartan [Cozaar] 50 mg PO DAILY 05/13/19 06/25/19 History Tamsulosin [Flomax] 0.4 mg PO DAILY #14 cap 05/22/19 06/25/19 Rx Loratadine [Claritin] 10 mg PO DAILY 06/25/19 06/25/19 History Allergies Allergy/AdvReac Type Severity Reaction Status Date / Time Iodinated Contrast Media Allergy Rash/Hives Verified 06/25/19 14:30 Physical Exam Vitals: Vital Signs Temp Pulse Pulse Resp BP BP Pulse Ox 06/25/19 19:05 98.5 F 104 H 16 125/75 97 06/25/19 16:49 98.2 F 105 H 16 134/87 94 L 03/03/20 16:01 98.1 F 103 H 17 115/82 96 06/25/19 16:00 16 06/25/19 14:25 20 06/25/19 13:18 100 16 114/77 96 06/25/19 11:33 99.0 F 107 H 20 130/79 96 06/25/19 11:31 85 18 131/94 96 Intake and Output 06/25/19 06/25/19 06/25/19 06:59 14:59 22:59 Output Total 250 Balance -250 Output: Gastric Drainage 100 Urine 150 Other: # Voids 1 Weight 99.473 kg 99.473 kg Results CBC & Chem 7: 06/25/19 12:05 06/25/19 12:05 Labs: Abnormal Lab Results - Last 24 Hours (Table) 06/25/19 06/25/19 06/25/19 Range/Units 12:05 12:05 12:30 WBC 16.5 H (3.8-10.6) k/uL Neutrophils # 15.3 H (1.3-7.7) k/uL Lymphocytes # 0.3 L (1.0-4.8) k/uL Carbon Dioxide 20 L (22-30) mmol/L BUN 34 H (9-20) mg/dL Creatinine 1.48 H (0.66-1.25) mg/dL Glucose 129 H (74-99) mg/dL Total Bilirubin 1.7 H (0.2-1.3) mg/dL Ur Specific [place] 1.037 H (1.001-1.035) Urine Protein 3+ H (Negative) Urine Glucose (UA) Trace H (Negative) Urine Ketones Trace H (Negative) Urine Blood Large H (Negative) Urine Bilirubin 1+ H (Negative) Ur Leukocyte Esterase Trace H (Negative) Urine RBC >182 H (0-5) /hpf Urine WBC 14 H (0-5) /hpf Amorphous Sediment Occasional H (None) /hpf Urine Bacteria Rare H (None) /hpf Urine Mucus Many H (None) /hpf Microbiology - Last 24 Hours (Table) 06/25/19 12:30 Urine Culture - Preliminary Urine,Voided Thrombosis Risk Factor Assmnt - Choose All That Apply Any of the Below Risk Factors Present?: Yes Each Factor Represents 1 point: Obesity (BMI >25) Other Risk Factors: Yes Each Risk Factor Represents 2 Points: Age 61-74 years Other congenital or acquired thrombophilia - If yes, enter type in comment: No Thrombosis Risk Factor Assessment Total Risk Factor Score: 3 Thrombosis Risk Factor Assessment Level: Moderate Risk
[2019-06-25] MEDS: ENOXAPARIN 40 MG/0.4 ML SYRINGE SQ SCH (23:13)
[2019-06-25] MEDS: LACTATED RINGERS 1,000 ML IV SCH (23:14)
[2019-06-26] MEDS: LACTATED RINGERS 1,000 ML IV SCH ×2 (04:45→12:19)
[2019-06-26] MEDS: TAMSULOSIN 0.4 MG CAP.ER.24H PO SCH (06:42)
[2019-06-26] MEDS: LOSARTAN 50 MG TAB PO SCH (06:42)
[2019-06-26] MEDS: ENOXAPARIN 40 MG/0.4 ML SYRINGE SQ SCH (06:43)
[2019-06-26 07:52] LABS: Calcium 8.7 mg/dL (8.4-10.2); Potassium 4.4 mmol/L (3.5-5.1)
[2019-06-26] MEDS: SODIUM CHLORIDE 0.9% 1,000 ML IV SCH ×2 (12:19→20:43)
--- NOTE | 2019-06-26 13:17 | P.PN ---
Subjective Progress Note Date: 06/26/19 Patient seen and evaluated. Patient gives additional history where he has history of Crohn's disease for over 25-28 years. He had surgery almost 30 years ago. This is his third bowel obstruction in this timeframe. Last bowel obstruction was in 2011 treated with conservative management including nasoga stric tube decompression. Patient has not followed up with the faculty research assistant in over 5 years. He does not take any medication to control his Crohn's disease. Since admission, he is passing flatus and having bowel movements. No further abdominal distention. I personally discontinued his na sogastric tube. May start liquid diet. As his symptoms has resolved, may discharge after tolerating diet. He will need follow-up with a faculty research assistant upon discharge. I personally reviewed the patient's computed tomography scan of the abdomen and pelvis without finding of free air. Anastomosis identified along the right lower quadrant consistent with previous ileocolectomy noted. Objective - Vital Signs Vital signs: Vital Signs Temp 97.4 F L 06/26/19 06:49 Pulse 98 06/26/19 06:40 Resp 17 06/26/19 07:00 BP 122/74 06/26/19 06:40 Pulse Ox 96 06/26/19 06:40 Intake & Output 06/25/19 06/26/19 06/26/19 18:59 06:59 18:59 Intake Total 1800 Output Total 250 Balance -250 1800 Weight 99.473 kg Intake: Intake, IV Titration 1800 Amount Lactated Ringers 1,000 ml 1800 @ 150 mls/hr IV .[id number] TIMOTHY Rx#:[id number] Output: Gastric Drainage 100 Urine 150 Other: Voiding Method Toilet Toilet # Voids 2 2 - Labs CBC & Chem 7: 06/25/19 12:05 06/26/19 06:21 Labs: Abnormal Lab Results - Last 24 Hours (Table) 06/26/19 06/26/19 06/26/19 Range/Units 06:21 06:21 06:21 ESR 18 H (0-15) mm/hr Chloride 108 H (98-107) mmol/L BUN 35 H (9-20) mg/dL Creatinine 1.38 H (0.66-1.25) mg/dL Glucose 118 H (74-99) mg/dL C-Reactive Protein 46.5 H (<10.0) mg/L Microbiology - Last 24 Hours (Table) 06/25/19 12:30 Urine Culture - Preliminary Urine,Voided
--- NOTE | 2019-06-26 13:46 | P.GSCN ---
<Genoveva Correa A - Last Filed: 06/26/19 13:43> History of Present Illness Consult date: 06/26/19 Reason for Consult: bowel obstruction Requesting physician: Odin Peter History of present illness: CHIEF COMPLAINT: Small bowel obstruction HISTORY OF PRESENT ILLNESS: 59-year-old male with a history of Crohn's disease and previous bowel resection who presented to the emergency room a chief compl aint of abdominal pain. NG tube was inserted in the ER. Patient currently denies pain. Denies nausea. Passing flatus. PAST MEDICAL HISTORY: See list. PAST SURGICAL HISTORY: See list. MEDICATIONS: See list. ALLERGIES: See list. SOCIAL HISTORY: No illicit drug use. REVIEW OF SYSTEMS: CONSTITUTIONAL: Denies fever or chills. HEENT: Denies blurred vision, vision changes, or eye pain. Denies hemoptysis ENDOCRINE: Denies heat or cold intolerance. CARDIOVASCULAR: Denies chest pain or pressure. RESPIRATORY: No shortness of breath. GASTROINTESTINAL: See HPI for pertinent findings NEURO: Denies history of seizures. PSYCH: No depression or suicidal ideation HEMATOLOGIC: Denies bleeding disorders. LYMPHATIC: The patient denies any lumps and bumps around the neck. GENITOURINARY: Denies any blood in urine or increased urinary frequency. MUSCULOSKELETAL: Denies myalgias. Denies joint swelling. Denies decreased range of motion beyond patients baseline. SKIN: Denies pruitis. Denies rash. PHYSICAL EXAM: VITAL SIGNS: Reviewed GENERAL: Well-developed in no acute distress. HEENT: No sclera icterus. Extraocular movements grossly intact. Moist buccal mucosa. Head is atraumatic, normocephalic. Hears conversational speech. No nasal leticia inage. NECK: Supple without lymphadenopathy. CHEST: Non-labored respirations and equal bilateral excursions. CARDIOVASCULAR: Regular rate with regular rhythm. Palpable 2+ radial pulses. ABDOMEN: Soft. Nondistended. Nontender. NG in place to LIS with bilious drainage. MUSCULOSKELETAL: No clubbing or cyanosis. NEUROLOGIC: No focal or lateralizing signs. Cranial nerves II through XII grossly intact. PSYCH: Appropriate affect. Alert and oriented to person, place and time. SKIN: Well perfused. Good skin turgor. LABORATORY DATA: WBC 16.5. Hemoglobin 17.2. Platelet count 230. Sodium 140. Potassium 4.4. BUN 35. Creatinine 1.3. Lactic acid 1.1. C-reactive protein 46.5. IMAGING: CT abdomen and pelvis: Small bowel obstruction secondary to an anastomotic stricture at the terminal ileum and cecum. Appendix appears surgically absent. Nonobstructing 3 mm right lower pole renal calculus. ASSESSMENT: 1. Abdominal pain 2. Small bowel obstruction secondary to anastomotic stricture 3. History of Crohn's disease 4. History of previous bowel resection PLAN: -Patient evaluated at the bedside by Dr. Schwab. NG tube removed. Begin clear liquid diet. -Stable for discharge home today if patient tolerates clear liquid diet. Patient instructed to follow up with GI physician outpatient. Nurse practitioner note has been reviewed by physician. Signing provider agrees with the documented findings, assessment, and plan of care. Past Medical History Past Medical History: Hypertension, Pneumonia, Prostate Disorder Additional Past Medical History / Comment(s): Chron's dx, colon polyps, BPH, recent R sided nephrolithiasis with surgery, sinus issues. History of Any Multi-Drug Resistant Organisms: None Reported Past Surgical History: Bowel Resection Additional Past Surgical History / Comment(s): 05/13/19 lithotripsy, 05/22/19 lithotripsy/ureteroscopy, bowel resection 27 yrs ago, EGDs, colonoscopies, vasectomy Past Anesthesia/Blood Transfusion Reactions: No Reported Reaction Smoking Status: Former smoker - Past Family History Mother Family Medical History: Deep Vein Thrombosis (DVT) Additional Family Medical History / Comment(s): Mother from a bowel obstruction at the age of 80yrs. Father Family Medical History: Congestive Heart Failure (CHF) Additional Family Medical History / Comment(s): Father of CHF at 80yrs. Brother(s) Family Medical History: CVA/TIA Additional Family Medical History / Comment(s): Brother had a CVA. Bother is living. Medications and Allergies Home Medications Medication Instructions Recorded Confirmed Type Losartan [Cozaar] 50 mg PO DAILY 05/13/19 06/25/19 History Tamsulosin [Flomax] 0.4 mg PO DAILY #14 cap 05/22/19 06/25/19 Rx Loratadine [Claritin] 10 mg PO DAILY 06/25/19 06/25/19 History Allergies Allergy/AdvReac Type Severity Reaction Status Date / Time Iodinated Contrast Media Allergy Rash/Hives Verified 06/25/19 14:30 Surgical - Exam Vital Signs Pulse Resp BP Pulse Ox 85 18 131/94 96 06/25/19 11:31 06/25/19 11:31 06/25/19 11:31 06/25/19 11:31 Results - Labs 06/25/19 12:05 06/26/19 06:21 Abnormal Lab Results - Last 24 Hours (Table) 06/25/19 06/25/19 06/25/19 Range/Units 12:05 12:05 12:30 WBC 16.5 H (3.8-10.6) k/uL Neutrophils # 15.3 H (1.3-7.7) k/uL Lymphocytes # 0.3 L (1.0-4.8) k/uL Chloride (98-107) mmol/L Carbon Dioxide 20 L (22-30) mmol/L BUN 34 H (9-20) mg/dL Creatinine 1.48 H (0.66-1.25) mg/dL Glucose 129 H (74-99) mg/dL Total Bilirubin 1.7 H (0.2-1.3) mg/dL C-Reactive Protein (<10.0) mg/L Ur Specific [place] 1.037 H (1.001-1.035) Urine Protein 3+ H (Negative) Urine Glucose (UA) Trace H (Negative) Urine Ketones Trace H (Negative) Urine Blood Large H (Negative) Urine Bilirubin 1+ H (Negative) Ur Leukocyte Esterase Trace H (Negative) Urine RBC >182 H (0-5) /hpf Urine WBC 14 H (0-5) /hpf Amorphous Sediment Occasional H (None) /hpf Urine Bacteria Rare H (None) /hpf Urine Mucus Many H (None) /hpf 06/26/19 06/26/19 Range/Units 06:21 06:21 WBC (3.8-10.6) k/uL Neutrophils # (1.3-7.7) k/uL Lymphocytes # (1.0-4.8) k/uL Chloride 108 H (98-107) mmol/L Carbon Dioxide (22-30) mmol/L BUN 35 H (9-20) mg/dL Creatinine 1.38 H (0.66-1.25) mg/dL Glucose 118 H (74-99) mg/dL Total Bilirubin (0.2-1.3) mg/dL C-Reactive Protein 46.5 H (<10.0) mg/L Ur Specific [place] (1.001-1.035) Urine Protein (Negative) Urine Glucose (UA) (Negative) Urine Ketones (Negative) Urine Blood (Negative) Urine Bilirubin (Negative) Ur Leukocyte Esterase (Negative) Urine RBC (0-5) /hpf Urine WBC (0-5) /hpf Amorphous Sediment (None) /hpf Urine Bacteria (None) /hpf Urine Mucus (None) /hpf Microbiology - Last 24 Hours (Table) 06/25/19 12:30 Urine Culture - Preliminary Urine,Voided Diabetes panel 06/25/19 06/26/19 Range/Units 12:05 06:21 Sodium 138 140 (137-145) mmol/L Potassium 4.8 4.4 (3.5-5.1) mmol/L Chloride 106 108 H (98-107) mmol/L Carbon Dioxide 20 L 23 (22-30) mmol/L BUN 34 H 35 H (9-20) mg/dL Creatinine 1.48 H 1.38 H (0.66-1.25) mg/dL Glucose 129 H 118 H (74-99) mg/dL Calcium 9.9 8.7 (8.4-10.2) mg/dL AST 37 (17-59) U/L ALT 40 (4-49) U/L Alkaline Phosphatase 76 (38-126) U/L Total Protein 7.7 (6.3-8.2) g/dL Albumin 4.7 (3.5-5.0) g/dL Calcium panel 06/25/19 06/26/19 Range/Units 12:05 06:21 Calcium 9.9 8.7 (8.4-10.2) mg/dL Albumin 4.7 (3.5-5.0) g/dL Pituitary panel 06/25/19 06/26/19 Range/Units 12:05 06:21 Sodium 138 140 (137-145) mmol/L Potassium 4.8 4.4 (3.5-5.1) mmol/L Chloride 106 108 H (98-107) mmol/L Carbon Dioxide 20 L 23 (22-30) mmol/L BUN 34 H 35 H (9-20) mg/dL Creatinine 1.48 H 1.38 H (0.66-1.25) mg/dL Glucose 129 H 118 H (74-99) mg/dL Calcium 9.9 8.7 (8.4-10.2) mg/dL Adrenal panel 06/25/19 06/26/19 Range/Units 12:05 06:21 Sodium 138 140 (137-145) mmol/L Potassium 4.8 4.4 (3.5-5.1) mmol/L Chloride 106 108 H (98-107) mmol/L Carbon Dioxide 20 L 23 (22-30) mmol/L BUN 34 H 35 H (9-20) mg/dL Creatinine 1.48 H 1.38 H (0.66-1.25) mg/dL Glucose 129 H 118 H (74-99) mg/dL Calcium 9.9 8.7 (8.4-10.2) mg/dL Total Bilirubin 1.7 H (0.2-1.3) mg/dL AST 37 (17-59) U/L ALT 40 (4-49) U/L Alkaline Phosphatase 76 (38-126) U/L Total Protein 7.7 (6.3-8.2) g/dL Albumin 4.7 (3.5-5.0) g/dL <Lida Schwab N - Last Filed: 06/26/19 18:16> History of Present Illness History of present illness: Patient seen and evaluated. Patient gives additional history where he has history of Crohn's disease for over 25-28 years. He had surgery almost 30 years ago. This is his third bowel obstruction in this timeframe. Last bowel obstruction was in 2011 treated with conservative management including nasogastric tube decompression. Patient has not followed up with the liner man in over 5 years. He does not take any medication to control his Crohn's disease. Since admission, he is passing flatus and having bowel movements. No further abdominal distention. I personally discontinued his nasogastric tube. May start liquid diet. As his symptoms has resolved, may discharge after tolerating diet. He will need follow-up with a liner man upon discharge. Surgical - Exam Vital Signs Pulse Resp BP Pulse Ox 85 18 131/94 96 06/25/19 11:31 06/25/19 11:31 06/25/19 11:31 06/25/19 11:31 Results - Labs 06/25/19 12:05 06/26/19 06:21 Abnormal Lab Results - Last 24 Hours (Table) 06/26/19 06/26/19 06/26/19 Range/Units 06:21 06:21 06:21 ESR 18 H (0-15) mm/hr Chloride 108 H (98-107) mmol/L BUN 35 H (9-20) mg/dL Creatinine 1.38 H (0.66-1.25) mg/dL Glucose 118 H (74-99) mg/dL C-Reactive Protein 46.5 H (<10.0) mg/L Microbiology - Last 24 Hours (Table) 06/25/19 12:30 Urine Culture - Preliminary Urine,Voided Diabetes panel 06/26/19 Range/Units 06:21 Sodium 140 (137-145) mmol/L Potassium 4.4 (3.5-5.1) mmol/L Chloride 108 H (98-107) mmol/L Carbon Dioxide 23 (22-30) mmol/L BUN 35 H (9-20) mg/dL Creatinine 1.38 H (0.66-1.25) mg/dL Glucose 118 H (74-99) mg/dL Calcium 8.7 (8.4-10.2) mg/dL Calcium panel 06/26/19 Range/Units 06:21 Calcium 8.7 (8.4-10.2) mg/dL Pituitary panel 06/26/19 Range/Units 06:21 Sodium 140 (137-145) mmol/L Potassium 4.4 (3.5-5.1) mmol/L Chloride 108 H (98-107) mmol/L Carbon Dioxide 23 (22-30) mmol/L BUN 35 H (9-20) mg/dL Creatinine 1.38 H (0.66-1.25) mg/dL Glucose 118 H (74-99) mg/dL Calcium 8.7 (8.4-10.2) mg/dL Adrenal panel 06/26/19 Range/Units 06:21 Sodium 140 (137-145) mmol/L Potassium 4.4 (3.5-5.1) mmol/L Chloride 108 H (98-107) mmol/L Carbon Dioxide 23 (22-30) mmol/L BUN 35 H (9-20) mg/dL Creatinine 1.38 H (0.66-1.25) mg/dL Glucose 118 H (74-99) mg/dL Calcium 8.7 (8.4-10.2) mg/dL Assessment and Plan (1) Crohn's disease Current Visit: Yes Status: Acute Code(s): K50.90 - CROHN'S DISEASE, UNSPECIFIED, WITHOUT COMPLICATIONS SNOMED Code(s): 89245087 (2) Anastomotic stricture of small intestine Current Visit: Yes Status: Acute Code(s): K91.89 - OTH POSTPROCEDURAL COMPLICATIONS AND DISORDERS OF DGSTV SYS SNOMED Code(s): 328850193 (3) Obesity (BMI 30.0-34.9) Current Visit: Yes Status: Acute Code(s): E66.9 - OBESITY, UNSPECIFIED SNOMED Code(s): 439987199378034
--- NOTE | 2019-06-26 13:57 | P.PN ---
Progress Note - Text Progress Note Date: 06/26/19 Chief Complaint: Abdominal pain and distention History of presenting complaint: This is a pleasant 59-year-old patient of Dr. Sunil gore. Chronic stable medical conditions include hypertension, BPH, obesity. Patient has known Crohn's disease. Being followed by. Dr. Maryanne Castano. Patient had her some bowel resected over 27 years ago... Yesterday evening around 10 PM suddenly the abdomen became distended. he developed chills. Started vomiting. Had a bowel movement yesterday. And a small runny stool this morning. Computed tomography scan in the ER showed a small bowel obstruction secondary to anastomotic stricture at the terminal ileum and cecal. NG tube was placed.. Admitted with-small bowel obstruction. Today-feeling much better. NG tube SUCTION. Has had 2 bowel movements since the morning. Positive flatus. Abdomen less distended. at the bedside. No pain Review of systems: Was done for constitutional, cardiovascular, GI, pulmonary. relevant finding as above Active Medications Enoxaparin Sodium (Lovenox) 40 mg SQ DAILY [facility] Last Admin: 06/26/19 06:43 Dose: 40 mg Documented by: Hydromorphone HCl (Dilaudid) 0.5 mg IVP Q3HR PRN PRN Reason: Pain Lactated Ringer's (Lactated Ringers) 1,000 mls @ 150 mls/hr IV .Q6H40M [facility] Last Admin: 06/26/19 12:19 Dose: Not Given Documented by: Sodium Chloride (Saline 0.9%) 1,000 mls @ 100 mls/hr IV .Q10H [facility] Last Admin: 06/26/19 12:19 Dose: 100 mls/hr Documented by: Losartan Potassium (Cozaar) 50 mg PO DAILY [facility] Last Admin: 06/26/19 06:42 Dose: 50 mg Documented by: Methylprednisolone Sodium Succinate (Solu-Medrol) 20 mg IV Q8HR [facility] Ondansetron HCl (Zofran) 4 mg IVP Q6HR PRN PRN Reason: Nausea And Vomiting Pantoprazole Sodium (Protonix) 40 mg IVP DAILY [facility] Tamsulosin HCl (Flomax) 0.4 mg PO DAILY [facility] Last Admin: 06/26/19 06:42 Dose: 0.4 mg Documented by: Physical examination: VITAL SIGNS: 97.6, 98, 17, 122/74, 96% room air GENERAL: Laying in bed, more comfortable. EYES: Pupils equal. Conjunctiva normal. HEENT: [External appearance of nose and ears normal, oral cavity dry, NG tube in place. NECK: JVD not raised; masses not palpable. HEART: First and second heart sounds are normal; no edema. LUNGS: Respiratory rate normal; clear to auscultation. ABDOMEN: Soft, far less distended, minimal tenderness, liver spleen not palpable, no masses palpable. Bowel sounds are present PSYCH: Alert and oriented x3; mood and affect anxiousl. INVESTIGATIONS, reviewed in the clinical context: Potassium 4.4 bun 35 creatinine 1.38 Previous testing White count 16.5 hemoglobin 13.2 potassium 4.8 bun 34 creatinine 1.48 UA positive for trace leukoesterase negative nitrite RBC Computed tomography scan of the abdomen shows small bowel obstruction at the junction the atrium and cecal Assessment: -This is a patient with Crohn's disease a prior bowel resection. Now presents with acute small bowel obstruction with the lesion being/stricture at the junction of ileum and cecum. -Hypertension -BPH -History of Crohn's disease -Obesity BMI 33.3 -Acute kidney injury likely, prerenal Plan: NG tube should be under, today. Could be tried on clear liquids. With that surgery decided that family. Discussed with the patient and his . Encouraged to be out of bed. Continue with IV fluids. Repeat labs in the morning.
[2019-06-26] MEDS: methylPREDNISolone SOD SUCCI 40 MG/ML 1 ML VIAL IV SCH ×2 (15:52→23:39)
--- NOTE | 2019-06-26 19:26 | P.CONS ---
History of Present Illness - Reason for Consult Consult date: 06/26/19 Crohn's, SBO Requesting physician: William Colmenares - Chief Complaint Abdominal pain, vomiting - History of Present Illness 59-year-old male with a medical history significant for hypertension, BPH, obesity and a long-standing history of Crohn's disease who presented to the hospital with complaints of abdominal pain, nausea and vomiting. The patient reports sudden onsets of abdominal pain with associated abdominal distention developing on the day prior to presentation. He subsequently had multiple episodes of nausea and vomiting. He presented to the emergency department (had similar symptoms in the past and has been diagnosed with bowel obstructions at that time and had a computed tomography scan of the abdomen with findings of small bowel obstruction secondary to anastomotic site stricture. Since that time the patient has been given conservative medical management with placement of a nasogastric tube and reports improvement in his symptoms of distention, v omiting and pain. He subsequently had bowel movements today. Patient's Crohn's disease was diagnosed 27 years ago at which time he presented with an obstruction and underwent surgical resection (likely ileocecectomy). He had a small bowel obstruction in 2005 also treated conservatively with improvement in his symptoms. He has been on no medications for treatment of his Crohn's disease. He does follow up with gastroenterology with last colonoscopy in 2015 significant for narrowing at the anastomotic site of the small bowel and colon as well as colitis in the right colon. Laboratory evaluation on presentation significant for WBC 16.5, hemoglobin 17.2, platelet count 230,000, CRP 46.5, ESR 18, total bilirubin 1.7, alkaline phosphatase 76, AST 37 and ALT 40. Review of Systems REVIEW OF SYSTEMS: CONSTITUTIONAL: Denies any fevers, chills, weight change or fatigue. CARDIOVASCULAR: Denies any chest pain, palpitations high or low blood pressures RESPIRATORY: Denies any shortness of breath, hemoptysis or cough. GENITOURINARY: No dysuria or hematuria. MUSCULOSKELETAL: No weakness reported. SKIN: Denies any new rashes or lesions, jaundice or pallor. PSYCHIATRIC: Denies any depression or anxiety. NEUROLOGY: Denies headache, denies any new focal deficits. EARS/NOSE/THROAT: No recent hearing change, congestion, nasal discharge or sore throat. EYES: No pain in eyes, discharge or change in vision. GASTROINTESTINAL: As per HPI. Past Medical History Past Medical History: Hypertension, Pneumonia, Prostate Disorder Additional Past Medical History / Comment(s): Chron's dx, colon polyps, BPH, recent R sided nephrolithiasis with surgery, sinus issues. History of Any Multi-Drug Resistant Organisms: None Reported Past Surgical History: Bowel Resection Additional Past Surgical History / Comment(s): 05/13/19 lithotripsy, 05/22/19 lithotripsy/ureteroscopy, bowel resection 27 yrs ago, EGDs, colonoscopies, vasectomy Past Anesthesia/Blood Transfusion Reactions: No Reported Reaction Smoking Status: Former smoker - Past Family History Mother Family Medical History: Deep Vein Thrombosis (DVT) Additional Family Medical History / Comment(s): Mother from a bowel obstruction at the age of 80yrs. Father Family Medical History: Congestive Heart Failure (CHF) Additional Family Medical History / Comment(s): Father of CHF at 80yrs. Brother(s) Family Medical History: CVA/TIA Additional Family Medical History / Comment(s): Brother had a CVA. Bother is living. Medications and Allergies Home Medications Medication Instructions Recorded Confirmed Type Losartan [Cozaar] 50 mg PO DAILY 05/13/19 06/25/19 History Tamsulosin [Flomax] 0.4 mg PO DAILY #14 cap 05/22/19 06/25/19 Rx Loratadine [Claritin] 10 mg PO DAILY 06/25/19 06/25/19 History Allergies Allergy/AdvReac Type Severity Reaction Status Date / Time Iodinated Contrast Media Allergy Rash/Hives Verified 06/25/19 14:30 Physical Exam Vitals: Vital Signs Temp Pulse Resp BP Pulse Ox 06/26/19 15:00 97.8 F 78 18 145/84 96 06/26/19 07:00 17 06/26/19 06:49 97.4 F L 06/26/19 06:40 98 17 122/74 96 06/26/19 04:00 16 06/26/19 03:00 97.6 F 102 H 16 144/67 95 06/26/19 00:00 16 06/25/19 20:00 16 Intake and Output 06/26/19 06/26/19 06/26/19 06:59 14:59 22:59 Intake Total 1800 Balance 1800 Intake: Intake, IV Titration 1800 Amount Lactated Ringers 1,000 ml 1800 @ 150 mls/hr IV .Q6H40M [facility] Rx#:[id number] Other: Voiding Method Toilet Toilet # Voids 2 2 On physical examination, patient appears comfortable in no apparent distress. HEAD: Normocephalic, atraumatic. EYES: No scleral icterus. No conjunctival injection. MOUTH: No lesions, tongue midline. NECK: Trachea midline, no gross abnormalities. CHEST: Clear to auscultation with no wheezing or rhonchi appreciated. HEART: Regular rate and rhythm. ABDOMEN: Soft, obese. Bowel sounds are positive. No organomegaly. No guarding or rigidity. EXTREMITIES: No pedal edema. SKIN: No rashes, no jaundice. NEUROLOGIC: Alert and oriented x3. No focal deficits. Results CBC & Chem 7: 06/25/19 12:05 06/26/19 06:21 Labs: Abnormal Lab Results - Last 24 Hours (Table) 06/26/19 06/26/19 06/26/19 Range/Units 06:21 06:21 06:21 ESR 18 H (0-15) mm/hr Chloride 108 H (98-107) mmol/L BUN 35 H (9-20) mg/dL Creatinine 1.38 H (0.66-1.25) mg/dL Glucose 118 H (74-99) mg/dL C-Reactive Protein 46.5 H (<10.0) mg/L Microbiology - Last 24 Hours (Table) 06/25/19 12:30 Urine Culture - Preliminary Urine,Voided CT scan - abdomen: report reviewed (Computed tomography scan of the abdomen with findings of small bowel obstruction at the level of the ileocolonic a nastomosis) Assessment and Plan (1) Anastomotic stricture of small intestine Narrative/Plan: 59-year-old with a known history of Crohn's disease and stricturing at the ileocolonic anastomosis who presented with nausea, vomiting and abdominal pain secondary to a obstruction at the anastomosis. He received treatment with NG tube placement and supportive care and currently reports improvement in his symptoms. Current Visit: Yes Status: Acute Code(s): K91.89 - OTH POSTPROCEDURAL COMPLICATIONS AND DISORDERS OF DGSTV SYS SNOMED Code(s): 482633003 (2) Crohn's disease Narrative/Plan: 59-year-old with long-standing history of Crohn's disease of the small and large bowel requiring prior surgical resection secondary to obstruction approximately 27 years ago. No prior medical management with last obstruction in 2005 treated conservatively with improvement in symptoms. Last colonoscopy in 2014 showed narrowing at the anastomotic site as well as disease activity in the right colon. Patient is scheduled for repeat colonoscopy this year. Current Visit: Yes Status: Acute Code(s): K50.90 - CROHN'S DISEASE, UNSPECI FIED, WITHOUT COMPLICATIONS SNOMED Code(s): 02660502 (3) Small bowel obstruction Current Visit: Yes Status: Acute Code(s): K56.609 - UNSP INTESTNL OBST, UNSP TO PARTIAL VERSUS COMPLETE OBST SNOMED Code(s): 109223086 Plan: Supportive care Appreciate recommendations from surgical service Plan is to start the patient on clear liquid diet ESR and CRP ordered and found to be elevated We'll initiate steroid taper with Solu-Medrol 20 mg every 8 hours Patient will need follow-up with gastroenterology after discharge Patient will need repeat colonoscopy this year in the outpatient setting to be determined in follow-up with GI X line thank you for allowing us to participate in the care of the patient we will
[2019-06-27] MEDS: SODIUM CHLORIDE 0.9% 1,000 ML IV SCH ×2 (05:37→07:38)
[2019-06-27 07:34] VITALS: BP 158/94; PULSE 86; RESP 17; TEMP 97.6
[2019-06-27] MEDS: ENOXAPARIN 40 MG/0.4 ML SYRINGE SQ SCH (07:34)
[2019-06-27] MEDS: TAMSULOSIN 0.4 MG CAP.ER.24H PO SCH (07:37)
[2019-06-27] MEDS: methylPREDNISolone SOD SUCCI 40 MG/ML 1 ML VIAL IV SCH (07:37)
[2019-06-27] MEDS: LOSARTAN 50 MG TAB PO SCH (07:38)
[2019-06-27 08:12] LABS: Calcium 8.5 mg/dL (8.4-10.2); Potassium 4.6 mmol/L (3.5-5.1)
[2019-06-27] MEDS ORDERED: PANTOPRAZOLE 40 MG/10 ML VIAL IVP SCH (09:00)
--- NOTE | 2019-06-27 09:51 | P.PN ---
Subjective Progress Note Date: 06/27/19 CHIEF COMPLAINT: Small bowel obstruction HISTORY OF PRESENT ILLNESS: Patient examined this morning at the bedside. Patient tolerating clear liquid diet. Denies nausea or vomiting. Passing flatus and having bowel movements. Patient is very anxious to be discharged home today. PHYSICAL EXAM: VITAL SIGNS: Reviewed GENERAL: Well-developed in no acute distress. HEENT: No sclera icterus. Extraocular movements grossly intact. Moist buccal mucosa. Head is atraumatic, normocephalic. Hears conversational speech. No nasal drainage. NECK: Supple without lymphadenopathy. CHEST: Non-labored respirations and equal bilateral excursions. CARDIOVASCULAR: Regular rate with regular rhythm. Palpable 2+ radial pulses. ABDOMEN: Soft. Nondistended. Nontender. MUSCULOSKELETAL: No clubbing or cyanosis. NEUROLOGIC: No focal or lateralizing signs. Cranial nerves II through XII grossly intact. PSYCH: Appropriate affect. Alert and oriented to person, place and time. SKIN: Well perfused. Good skin turgor. ASSESSMENT: 1. Abdominal pain 2. Small bowel obstruction secondary to anastomotic stricture 3. History of Crohn's disease 4. History of previous bowel resection PLAN: -Advance diet -Stable for discharge home today from a surgical standpoint -Patient instructed to follow up with GI physician outpatient Nurse practitioner note has been reviewed by physician. Signing provider agrees with the documented findings, assessment, and plan of care. Objective - Vital Signs Vital signs: Vital Signs Temp 97.6 F 06/27/19 07:33 Pulse 86 06/27/19 07:33 Resp 17 06/27/19 07:33 BP 158/94 06/27/19 07:33 Pulse Ox 99 06/27/19 07:33 Intake & Output 06/26/19 06/27/19 06/27/19 18:59 06:59 18:59 Intake Total 600 Balance 600 Intake: Intake, IV Titration 600 Amount Sodium Chloride 0.9% 1, 600 000 ml @ 100 mls/hr IV . Q10H [facility] Rx#:[id number] Other: Voiding Method Toilet Toilet Toilet # Voids 2 1 - Labs CBC & Chem 7: 06/25/19 12:05 06/27/19 06:37 Labs: Abnormal Lab Results - Last 24 Hours (Table) 06/26/19 06/26/19 06/27/19 Range/Units 06:21 06:21 06:37 ESR 18 H (0-15) mm/hr Chloride 109 H (98-107) mmol/L BUN 22 H (9-20) mg/dL Glucose 105 H (74-99) mg/dL C-Reactive Protein 46.5 H (<10.0) mg/L Microbiology - Last 24 Hours (Table) 06/25/19 12:30 Urine Culture - Final Urine,Voided
[2019-06-27] MEDS ORDERED: predniSONE 20 MG TAB PO SCH (10:45)
--- NOTE | 2019-06-29 22:02 | P.DS ---
Providers Date of admission: 06/25/19 14:14 Expected date of discharge: 06/29/19 Attending physician: William Colmenares Consults: 06/25/19 14:13 Consult Physician Urgent Consulting Provider: Ldia Schwab Consult Reason/Comments: Bowel obstruction Do you want consulting provider notified?: Yes Consult Physician Urgent Consulting Provider: Natalie Castano Consult Reason/Comments: Crohn's Do you want consulting provider notified?: Yes Primary care physician: Sunil Gallardo [facility] Course: Chief Complaint: Abdominal pain and distention History of presenting complaint: This is a pleasant 59-year-old patient of Dr. Sunil gallardo. Chronic stable medical conditions include hypertension, BPH, obesity. Patient has known Crohn's disease. Being followed by. Dr. Maryanne Castano. Patient had her some bowel resected over 27 years ago... Yesterday evening around 10 PM suddenly the abdomen became distended. he developed chills. Started vomiting. Had a bowel movement yesterday. And a small runny stool this morning. Computed tomography scan in the ER showed a small bowel obstruction secondary to anastomotic stricture at the terminal ileum and cecal. NG tube was placed.. Admitted with-small bowel obstruction. Hence it NG tube. 2 suction. Responded well. Also given IV steroids. Today-much improved. Had bowel movement. Did tolerate a liquid diet. Cleared by surgery and GI. Discussed with the patient . No abdominal pain. Consultation: Dr. Abbott from GI Dr. Hughes from general surgery Physical examination: VITAL SIGNS: 97.6, 86, 17, 158/94, 99% room air GENERAL: Laying in bed, more comfortable. EYES: Pupils equal. Conjunctiva normal. HEENT: [External appearance of nose and ears normal, oral cavity dry, NG tube in place. NECK: JVD not raised; masses not palpable. HEART: First and second heart sounds are normal; no edema. LUNGS: Respiratory rate normal; clear to auscultation. ABDOMEN: Soft, non-tenderness, liver spleen not palpable, no masses palpable. Bowel sounds are present PSYCH: Alert and oriented x3; mood and affect anxiousl. INVESTIGATIONS, reviewed in the clinical context: Potassium 4.6 creatinine 1.06 Previous testing White count 16.5 hemoglobin 13.2 potassium 4.8 bun 34 creatinine 1.48 UA positive for trace leukoesterase negative nitrite RBC Computed tomography scan of the abdomen shows small bowel obstruction at the junction the atrium and cecal Assessment: -This is a patient with Crohn's disease a prior bowel resection. Now presents with acute small bowel obstruction POA. -Hypertension -BPH -History of Crohn's disease -Obesity BMI 33.3 -Acute kidney injury prerenal Disposition: Home Patient Condition at Discharge: Stable Plan - Discharge Summary Discharge Rx Participant: No New Discharge Prescriptions: New predniSONE 10 mg PO DAILY #70 tab Continue Losartan [Cozaar] 50 mg PO DAILY Tamsulosin [Flomax] 0.4 mg PO DAILY #14 cap Loratadine [Claritin] 10 mg PO DAILY Discharge Medication List Losartan [Cozaar] 50 mg PO DAILY 05/13/19 [History] Tamsulosin [Flomax] 0.4 mg PO DAILY #14 cap 05/22/19 [Rx] Loratadine [Claritin] 10 mg PO DAILY 06/25/19 [History] predniSONE 10 mg PO DAILY #70 tab 06/27/19 [Rx] Follow up Appointment(s)/Referral(s): Sunil Gallardo MD [Primary Care Provider] - 07/04/19 3:00 pm Jairo Alamo MD [STAFF PHYSICIAN] - 07/18/19 1:30 pm (Your appointment will be with Eliana Carrera NP.) Patient Instructions/Handouts: Bowel Obstruction (DC) Activity/Diet/Wound Care/Special Instructions: Diet as tolerated Discharge Disposition: HOME SELF-CARE
== END 2019-06-27 10:53 | disposition home or self-care (01) | DRG 389 ==
LOC: EC 11:28 → 4SSUR 14:14
PROVIDERS: ADMIT Hospitalist; ATTEND Hospitalist
PROC: 0D9670Z Drainage of Stomach with Drainage Device, Via Natural or Artificial Opening (ICD-10-PCS; principal; 2019-06-25)
DX: K91.30 Postprocedural intestinal obstruction, unspecified as to partial versus complete (principal); K50.90 Crohn's disease, unspecified, without complications; N17.9 Acute kidney failure, unspecified; I10 Essential (primary) hypertension; N40.0 Benign prostatic hyperplasia without lower urinary tract symptoms; E66.9 Obesity, unspecified; Z68.33 Body mass index [BMI] 33.0-33.9, adult; Z79.899 Other long term (current) drug therapy; Z87.01 Personal history of pneumonia (recurrent); Z87.891 Personal history of nicotine dependence; Z86.010 Personal history of colon polyps; Z90.49 Acquired absence of other specified parts of digestive tract; Z87.442 Personal history of urinary calculi; Z98.890 Other specified postprocedural states; Y83.2 Surgical operation with anastomosis, bypass or graft as the cause of abnormal reaction of the patient, or of later complication, without mention of misadventure at the time of the procedure; Z91.041 Radiographic dye allergy status; Z83.2 Family history of diseases of the blood and blood-forming organs and certain disorders involving the immune mechanism; Z82.49 Family history of ischemic heart disease and other diseases of the circulatory system; Z82.3 Family history of stroke
CPT/HCPCS: 36415; 71045; 74177; 80048; 80053; 81001; 82150; 83605; 83690; 85025; 85652; 86140; 87086; 96361; 96374; 96375; 99285

== ENCOUNTER 2020-01-09 10:33 | Day surgery (SDC) | payer OTHER ==
[2020-01-07 18:36] VITALS: BMI 33.7
[~2020-01-09 10:33] MED LIST changes: -DEXAMETHASONE SOD PHOSPHATE 10 MG/ML 1 ML VIAL IV ONE; -HYDROmorphone 0.5 MG/0.5 ML SYRINGE IVP PRN; -LIDOCAINE 1% 20 ML VIAL (10MG/ML) FOR IV START INTRADERMA PRN; -ONDANSETRON 4 MG/2 ML VIAL IVP ONE
[2020-01-09] MEDS ORDERED: LIDOCAINE 1% (10MG/ML) FOR IV START INTRADERMA ONE (11:48)
[2020-01-09 11:51] VITALS: RESP 16; TEMP 98
[2020-01-09] MEDS ORDERED: PROPOFOL 10 MG/ML 20 ML VIAL IV ONE (12:20)
--- NOTE | 2020-01-09 12:39 | P.PCN ---
Date of Procedure: 01/09/20 Procedure(s) Performed: BRIEF HISTORY: Patient is a 59-year-old pleasant male, scheduled for an elective colonoscopy as a part of prior history of Crohn's ileitis diagnosed in the . He is status post terminal ileal resection in the past. He was admitted to the hospital with the small bowel obstruction June of this year and was treated with steroids and did well. He scheduled for colonoscopy to evaluate for any recurrent Crohn's disease PROCEDURE PERFORMED: Colonoscopy with biopsy. PREOPERATIVE DIAGNOSIS: History of Crohn's disease diagnosed with years ago status post TI resection in 1990. Recent episode of small bowel obstruction in June of this year IV sedation per Anesthesia. PROCEDURE: After informed consent was obtained, the patient, was brought into the endoscopy unit. IV sedation was administered by Anesthesia under continuous monitoring. Digital rectal examination was normal. Initially the Olympus CF-160 flexible video colonoscope was then inserted in the rectum, gradually advanced into the right colon with ileocolic anastomosis was visualized. There was stricture noted of the liquid anastomosis with mucosal erythema and some superficial erosions biopsies were done from this area. The scope could not be advanced through the stricture into the distal ileum. Mucosa of the transverse colon, descending colon, sigmoid colon, and rectum appeared normal. Retroflexion was performed in the rectum and no lesions were seen. The patient tolerated the procedure well. IMPRESSION: Narrowing of the ileocolonic anastomosis in the right colon with a tight stricture with some erythema and erosionsnoted consistent with recurrent Crohn's disease status post biopsies Rest of the colon appeared normal RECOMMENDATIONS: Findings of this examination were discussed with the patient as well as his family. He was advised to follow with the biopsy results. He'll be seen in office in 2-3 weeks.
[2020-01-09 13:08] VITALS: BP 131/66; PULSE 96
== END 2020-01-09 13:18 | disposition home or self-care (01) ==
LOC: ORWHC2ENDO 10:33
PROVIDERS: ATTEND Internal Medicine Gastroenterology
DX: K56.609 Unspecified intestinal obstruction, unspecified as to partial versus complete obstruction (principal); K63.3 Ulcer of intestine; K50.90 Crohn's disease, unspecified, without complications; I10 Essential (primary) hypertension; N40.0 Benign prostatic hyperplasia without lower urinary tract symptoms; N20.0 Calculus of kidney; K21.9 Gastro-esophageal reflux disease without esophagitis; Z98.0 Intestinal bypass and anastomosis status; Z90.49 Acquired absence of other specified parts of digestive tract; Z87.19 Personal history of other diseases of the digestive system; Z91.041 Radiographic dye allergy status; Z87.01 Personal history of pneumonia (recurrent); Z86.010 Personal history of colon polyps
CPT/HCPCS: 88305; 45380; J2704

== ENCOUNTER → 2020-02-06 | Outpatient (CLI) | payer OTHER ==
[2020-02-06 16:30] LABS: Basophils % (A) 1 %; Eosinophils # (A) 0.1 k/uL (0-0.7); Eosinophils % (A) 2 %; HCT 47.6 % (39.0-53.0); HGB 15.6 gm/dL (13.0-17.5); Lymphocytes # (A) 1.7 k/uL (1.0-4.8); Lymphocytes % (A) 25 %; MCH 29.5 pg (25.0-35.0); MCHC 32.7 g/dL (31.0-37.0); MCV 90.1 fL (80.0-100.0); Mean Platelet Volume 7.2; Monocytes # (A) 0.4 k/uL (0-1.0); Monocytes % (A) 6 %; Neutrophils # (A) 4.3 k/uL (1.3-7.7); Neutrophils % (A) 65 %; Platelet Count 246 k/uL (150-450); RBC 5.28 m/uL (4.30-5.90); RDW 13.6 % (11.5-15.5); WBC 6.7 k/uL (3.8-10.6)
[2020-02-07 01:42] LABS: African American GFR (CKD) 68.3 (60.0-200.0); Albumin 4.3 g/dL (3.80-4.90); Albumin/Globulin Ratio 2.05 (1.60-3.17); Anion Gap 8.5 mmol/L (4.00-12.00); BUN/Creat Ratio 21.54 Ratio (12.00-20.00); Calcium 9.7 mg/dL (8.7-10.3); Carbon Dioxide 24.5 mmol/L (21.6-31.8); Globulin 2.1 g/dL (1.6-3.3); Non-African American GFR(CKD) 58.9 (60.0-200.0); Potassium 4.4 mmol/L (3.5-5.5); Total Bilirubin 0.5 mg/dL (0.3-1.2); Total Protein 6.4 g/dL (6.2-8.2)
[2020-02-07 02:19] LABS: Hepatitis B Surface AB- Quant 237.6 mIU/mL; Hepatitis B Surface Antibody Reactive (Non-Reactive); Hepatitis B Surface Antigen Non-Reactive (Non-Reactive); Hepatitis C IgG Antibody Non-Reactive (Non-Reactive)
== END | disposition home or self-care (01) ==
LOC: LABWHC1 15:52
PROVIDERS: ATTEND Internal Medicine Gastroenterology
DX: K50.90 Crohn's disease, unspecified, without complications (principal)
CPT/HCPCS: 36415; 80053; 85025; 86480; 86704; 86706; 86803; 87340

== ENCOUNTER → 2020-06-08 | Outpatient (CLI) | payer OTHER ==
[2020-06-08 11:16] LABS: Basophils # (A) 0.05 X 10*3/uL (0.00-0.10); Eosinophils # (A) 0.13 X 10*3/uL (0.04-0.35); Eosinophils % (A) 2.5 %; HCT 43.2 % (39.6-50.0); HGB 15.4 g/dL (13.0-17.0); Lymphocytes # (A) 1.76 X 10*3/uL (0.90-5.00); Lymphocytes % (A) 34.4 %; MCH 30.5 pg (27.0-32.0); MCHC 35.6 g/dL (32.0-37.0); MCV 85.5 fL (80.0-97.0); Monocytes # (A) 0.49 X 10*3/uL (0.20-1.00); Monocytes % (A) 9.6 %; Neutrophils # (A) 2.68 X 10*3/uL (1.80-7.70); Neutrophils % (A) 52.3 %; Platelet Count 236 X 10*3/uL (140-440); RBC 5.05 X 10*6/uL (4.40-5.60); RDW 12.8 % (11.5-14.5); WBC 5.12 X 10*3/uL (4.50-10.00)
[2020-06-08 11:31] LABS: African American GFR (CKD) 93.1 (60.0-200.0); Albumin 4.5 g/dL (3.80-4.90); Albumin/Globulin Ratio 1.96 (1.60-3.17); Calcium 9.5 mg/dL (8.7-10.3); Globulin 2.3 g/dL (1.6-3.3); Non-African American GFR(CKD) 80.3 (60.0-200.0); Potassium 3.7 mmol/L (3.5-5.5); Total Bilirubin 0.7 mg/dL (0.3-1.2); Total Protein 6.8 g/dL (6.2-8.2)
[2020-06-08 12:06] LABS: Hepatitis B Surface Antibody Reactive (Non-Reactive); Hepatitis B Surface Antigen Non-Reactive (Non-Reactive); Hepatitis C IgG Antibody Non-Reactive (Non-Reactive)
== END | disposition home or self-care (01) ==
LOC: LABWHC1 07:35
PROVIDERS: ATTEND Internal Medicine Gastroenterology
DX: K50.90 Crohn's disease, unspecified, without complications (principal)
CPT/HCPCS: 36415; 80053; 85025; 86480; 86704; 86706; 86803; 87340

== ENCOUNTER 2020-11-01 07:47 | Emergency (ER) | payer OTHER ==
[2020-11-01 07:55] VITALS: TEMP 98.2
[2020-11-01] MEDS ORDERED: hydrALAZINE HCL 20 MG/ML 1 ML VIAL IVP STA ×2 (08:23→10:03)
--- NOTE | 2020-11-01 08:25 | ED ---
General Adult HPI - General Chief complaint: Shortness of Breath Stated complaint: sob/headache Time Seen by Provider: 11/01/20 07:55 Source: patient, RN notes reviewed, old records reviewed Mode of arrival: ambulatory Limitations: no limitations - History of Present Illness Initial comments: This is a 60-year-old male who presents to the emergency department with a past history significant for high blood pressure. Patient states she has no underlying breathing problems that he knows of. Patient states this morning he woke up had a headache he took his blood pressure systolic blood pressure was in the 190s. Patient states he did take his blood pressure medications that time but he continues to have a headache in the left side of his head. Patient states it's pretty typical of his normal headache just feels a little bit worse today. Patient states he also has a sensation that he can't take a deep breath or get enough air however he doesn't believe he is actually short of breath does not feel like he can't catch his breath. Patient denies any chest pain or palpitations. Patient denies any swelling to her legs or calf tenderness. Carlos blanton denies any fever chills or cough. Patient denies any numbness or weakness. Eyes lightheadedness or dizziness. - Related Data Home Medications Medication Instructions Recorded Confirmed Losartan [Cozaar] 50 mg PO DAILY 05/13/19 01/09/20 Loratadine [Claritin] 10 mg PO DAILY 06/25/19 01/09/20 Previous Rx's Medication Instructions Recorded Tamsulosin [Flomax] 0.4 mg PO DAILY #14 cap 05/22/19 Allergies Allergy/AdvReac Type Severity Reaction Status Date / Time Iodinated Contrast Media Allergy Rash/Hives Verified 11/01/20 07:56 Review of Systems ROS Statement: Those systems with pertinent positive or pertinent negative responses have been documented in the HPI. ROS Other: All systems not noted in ROS Statement are negative. Past Medical History Past Medical History: GERD/Reflux, Hypertension, Pneumonia, Prostate Disorder Additional Past Medical History / Comment(s): Chrohn's dx, colon polyps, BPH, Hx R sided nephrolithiasis with surgery, sinus issues. History of Any Multi-Drug Resistant Organisms: None Reported Past Surgical History: Bowel Resection Additional Past Surgical History / Comment(s): 05/13/19 lithotripsy, 05/22/19 lithotripsy/ureteroscopy, bowel resection 27 yrs ago, EGDs, colonoscopies, vasectomy Past Anesthesia/Blood Transfusion Reactions: No Reported Reaction Past Psychological History: No Psychological Hx Reported Smoking Status: Former smoker Past Alcohol Use History: None Reported Past Drug Use History: None Reported - Past Family History Mother Family Medical History: Deep Vein Thrombosis (DVT) Additional Family Medical History / Comment(s): Mother from a bowel obstruction at the age of 80yrs. Father Family Medical History: Congestive Heart Failure (CHF) Additional Family Medical History / Comment(s): Father of CHF at 80yrs. Brother(s) Family Medical History: Cancer, CVA/TIA Additional Family Medical History / Comment(s): Brother had a CVA. Bother is living. Prostate cancer General Exam - General Exam Comments Initial Comments: GENERAL: Patient is well-developed and well-nourished. Patient is nontoxic and well- hydrated and is in mild distress. ENT: Neck is soft and supple. No significant lymphadenopathy is noted. Oropharynx is clear. Moist mucous membranes. Neck has full range of motion without eliciting any pain. EYES: The sclera were anicteric and conjunctiva were pink and moist. Extraocular movements were intact and pupils were equal round and reactive to light. Eyelids were unremarkable. PULMONARY: Unlabored respirations. Good breath sounds bilaterally. No audible rales rhonchi or wheezing was noted. CARDIOVASCULAR: There is a regular rate and rhythm without any murmurs gallops or rubs. ABDOMEN: Soft and nontender with normal bowel sounds. SKIN: Skin is clear with no lesions or rashes and otherwise unremarkable. NEUROLOGIC: Patient is alert and oriented x3. Cranial nerves II through XII are grossly intact. Motor and sensory are also intact. Normal speech, volume and content. Symmetrical smile. MUSCULOSKELETAL: Normal extremities with adequate strength and full range of motion. No lower extremity swelling or edema. No calf tenderness. LYMPHATICS: No significant lymphadenopathy is noted PSYCHIATRIC: Normal psychiatric evaluation. Limitations: no limitations Course Vital Signs 11/01/20 11/01/20 11/01/20 07:53 08:31 09:01 Temperature 98.2 F Pulse Rate 83 80 79 Respiratory 16 18 18 Rate Blood Pressure 173/104 159/108 171/95 O2 Sat by Pulse 97 97 98 Oximetry 11/01/20 11/01/20 09:54 10:53 Temperature Pulse Rate 87 81 Respiratory 18 18 Rate Blood Pressure 159/93 170/96 O2 Sat by Pulse 98 98 Oximetry Medical Decision Making - Medical Decision Making EKG shows normal sinus rhythm at 79 bpm IN interval is 154 QRS is 90 QT interval 38 QTC is 444. Patient's EKG shows no ST segment patient depression. I will begin and reevaluated the patient he states his headache was very mild this point but he still felt a little short of breath. Patient was oxygenating in the high 90s and was out of bed sitting in a chair and was having no chest pain. I will begin the room to reevaluate the patient patient was feeling much better. Patient's CT of the brain shows no acute abnormality. Patient's chest x-ray shows no acute abnormality. Patient told me at this time that he thinks he had a panic attack this morning and he states he has had them in the past. - Lab Data Result diagrams: 11/01/20 08:27 11/01/20 08:27 Lab Results 11/01/20 11/01/20 11/01/20 Range/Units 08:27 08:27 08:27 WBC 6.6 (3.8-10.6) k/uL RBC 4.81 (4.30-5.90) m/uL Hgb 15.2 (13.0-17.5) gm/dL Hct 41.7 (39.0-53.0) % MCV 86.7 (80.0-100.0) fL MCH 31.7 (25.0-35.0) pg MCHC 36.6 (31.0-37.0) g/dL RDW 12.9 (11.5-15.5) % Plt Count 245 (150-450) k/uL MPV 7.1 Neutrophils % 70 % Lymphocytes % 20 % Monocytes % 6 % Eosinophils % 2 % Basophils % 1 % Neutrophils # 4.6 (1.3-7.7) k/uL Lymphocytes # 1.3 (1.0-4.8) k/uL Monocytes # 0.4 (0-1.0) k/uL Eosinophils # 0.1 (0-0.7) k/uL Basophils # 0.1 (0-0.2) k/uL PT 10.6 (9.0-12.0) sec INR 1.0 (<1.2) APTT 25.2 (22.0-30.0) sec D-Dimer (<0.60) mg/L FEU Sodium 140 (137-145) mmol/L Potassium 3.9 (3.5-5.1) mmol/L Chloride 107 (98-107) mmol/L Carbon Dioxide 25 (22-30) mmol/L Anion Gap 8 mmol/L BUN 18 (9-20) mg/dL Creatinine 0.99 (0.66-1.25) mg/dL Est GFR (CKD-EPI)AfAm >90 (>60 ml/min/1.73 sqM) Est GFR (CKD-EPI)NonAf 81 (>60 ml/min/1.73 sqM) Glucose 110 H (74-99) mg/dL Plasma Lactic Acid Ciaran (0.7-2.0) mmol/L Calcium 9.7 (8.4-10.2) mg/dL Magnesium 1.9 (1.6-2.3) mg/dL Total Bilirubin 0.7 (0.2-1.3) mg/dL AST 31 (17-59) U/L ALT 37 (4-49) U/L Alkaline Phosphatase 53 (38-126) U/L Troponin I (0.000-0.034) ng/mL NT-Pro-B Natriuret Pep pg/mL Total Protein 6.8 (6.3-8.2) g/dL Albumin 4.1 (3.5-5.0) g/dL 11/01/20 11/01/20 11/01/20 Range/Units 08:27 08:27 08:27 WBC (3.8-10.6) k/uL RBC (4.30-5.90) m/uL Hgb (13.0-17.5) gm/dL Hct (39.0-53.0) % MCV (80.0-100.0) fL MCH (25.0-35.0) pg MCHC (31.0-37.0) g/dL RDW (11.5-15.5) % Plt Count (150-450) k/uL MPV Neutrophils % % Lymphocytes % % Monocytes % % Eosinophils % % Basophils % % Neutrophils # (1.3-7.7) k/uL Lymphocytes # (1.0-4.8) k/uL Monocytes # (0-1.0) k/uL Eosinophils # (0-0.7) k/uL Basophils # (0-0.2) k/uL PT (9.0-12.0) sec INR (<1.2) APTT (22.0-30.0) sec D-Dimer (<0.60) mg/L FEU Sodium (137-145) mmol/L Potassium (3.5-5.1) mmol/L Chloride (98-107) mmol/L Carbon Dioxide (22-30) mmol/L Anion Gap mmol/L BUN (9-20) mg/dL Creatinine (0.66-1.25) mg/dL Est GFR (CKD-EPI)AfAm (>60 ml/min/1.73 sqM) Est GFR (CKD-EPI)NonAf (>60 ml/min/1.73 sqM) Glucose (74-99) mg/dL Plasma Lactic Acid Ciaran 1.3 (0.7-2.0) mmol/L Calcium (8.4-10.2) mg/dL Magnesium (1.6-2.3) mg/dL Total Bilirubin (0.2-1.3) mg/dL AST (17-59) U/L ALT (4-49) U/L Alkaline Phosphatase (38-126) U/L Troponin I <0.012 (0.000-0.034) ng/mL NT-Pro-B Natriuret Pep 32 pg/mL Total Protein (6.3-8.2) g/dL Albumin (3.5-5.0) g/dL 11/01/20 Range/Units 08:27 WBC (3.8-10.6) k/uL RBC (4.30-5.90) m/uL Hgb (13.0-17.5) gm/dL Hct (39.0-53.0) % MCV (80.0-100.0) fL MCH (25.0-35.0) pg MCHC (31.0-37.0) g/dL RDW (11.5-15.5) % Plt Count (150-450) k/uL MPV Neutrophils % % Lymphocytes % % Monocytes % % Eosinophils % % Basophils % % Neutrophils # (1.3-7.7) k/uL Lymphocytes # (1.0-4.8) k/uL Monocytes # (0-1.0) k/uL Eosinophils # (0-0.7) k/uL Basophils # (0-0.2) k/uL PT (9.0-12.0) sec INR (<1.2) APTT (22.0-30.0) sec D-Dimer 0.28 (<0.60) mg/L FEU Sodium (137-145) mmol/L Potassium (3.5-5.1) mmol/L Chloride (98-107) mmol/L Carbon Dioxide (22-30) mmol/L Anion Gap mmol/L BUN (9-20) mg/dL Creatinine (0.66-1.25) mg/dL Est GFR (CKD-EPI)AfAm (>60 ml/min/1.73 sqM) Est GFR (CKD-EPI)NonAf (>60 ml/min/1.73 sqM) Glucose (74-99) mg/dL Plasma Lactic Acid Ciaran (0.7-2.0) mmol/L Calcium (8.4-10.2) mg/dL Magnesium (1.6-2.3) mg/dL Total Bilirubin (0.2-1.3) mg/dL AST (17-59) U/L ALT (4-49) U/L Alkaline Phosphatase (38-126) U/L Troponin I (0.000-0.034) ng/mL NT-Pro-B Natriuret Pep pg/mL Total Protein (6.3-8.2) g/dL Albumin (3.5-5.0) g/dL Disposition Clinical Impression: Hypertensive urgency Disposition: HOME SELF-CARE Condition: Good Instructions (If sedation given, give patient instructions): Hypertension (ED) Additional Instructions: Patient should monitor his blood pressure before every meal and before bed and follow-up with his primary medical care doctor. Is patient prescribed a controlled substance at d/c from ED?: No Referrals: Mary Boateng MD [Primary Care Provider] - 1-2 days Time of Disposition: 11:12
[2020-11-01 08:32] VITALS: RESP 18
[2020-11-01 08:37] LABS: Basophils # (A) 0.1 k/uL (0-0.2); Basophils % (A) 1 %; Eosinophils # (A) 0.1 k/uL (0-0.7); Eosinophils % (A) 2 %; HCT 41.7 % (39.0-53.0); HGB 15.2 gm/dL (13.0-17.5); Lymphocytes # (A) 1.3 k/uL (1.0-4.8); Lymphocytes % (A) 20 %; MCH 31.7 pg (25.0-35.0); MCHC 36.6 g/dL (31.0-37.0); MCV 86.7 fL (80.0-100.0); Mean Platelet Volume 7.1; Monocytes # (A) 0.4 k/uL (0-1.0); Monocytes % (A) 6 %; Neutrophils # (A) 4.6 k/uL (1.3-7.7); Neutrophils % (A) 70 %; Platelet Count 245 k/uL (150-450); RBC 4.81 m/uL (4.30-5.90); RDW 12.9 % (11.5-15.5); WBC 6.6 k/uL (3.8-10.6)
[2020-11-01 08:49] LABS: Partial Thromboplastin Time 25.2 sec (22.0-30.0); Prothrombin Time 10.6 sec (9.0-12.0)
[2020-11-01 08:52] LABS: ALT 37 U/L (4-49); AST 31 U/L (17-59); African American GFR (CKD) >90 (>60 ml/min/1.73 sqM); Albumin 4.1 g/dL (3.5-5.0); Alkaline Phosphatase 53 U/L (38-126); Anion Gap 8 mmol/L; Blood Urea Nitrogen 18 mg/dL (9-20); Calcium 9.7 mg/dL (8.4-10.2); Carbon Dioxide 25 mmol/L (22-30); Chloride 107 mmol/L (98-107); Glucose 110 mg/dL (74-99); Magnesium 1.9 mg/dL (1.6-2.3); Non-African American GFR(CKD) 81 (>60 ml/min/1.73 sqM); Potassium 3.9 mmol/L (3.5-5.1); Sodium 140 mmol/L (137-145); Total Bilirubin 0.7 mg/dL (0.2-1.3); Total Protein 6.8 g/dL (6.3-8.2)
--- NOTE | 2020-11-01 09:03 | XR ---
EXAMINATION TYPE: XR chest 2V DATE OF EXAM: 11/01/2020 COMPARISON: Chest x-ray and CT 06/25/2019 HISTORY: Difficulty breathing, dyspnea and shortness of breath TECHNIQUE: Frontal and lateral views of the chest are obtained. FINDINGS: There is no focal air space opacity, pleural effusion, or pneumothorax seen. The cardiac silhouette size is within normal limits. The osseous structures are intact. NG tube has been remove d. Calcified gallstone noted in the right upper quadrant. IMPRESSION: No acute cardiopulmonary process. Cholelithiasis.
[2020-11-01 10:55] VITALS: BP 170/96; PULSE 81
--- NOTE | 2020-11-01 11:02 | CT ---
EXAMINATION TYPE: CT brain wo con DATE OF EXAM: 11/01/2020 COMPARISON: None HISTORY: [employer] CT DLP: 1099.4 mGycm Automated exposure control for dose reduction was used. Helical imaging through the brain. FINDINGS: There is some cerebral vascular calcifications present. No evident hydrocephalus or hemorrhage. Brain density is maintained. Calvarium is intact. Paranasal sinuses and mastoid air cells as visualized ar e normal. IMPRESSION: NORMAL FOR AGE NONCONTRAST BRAIN CT
== END 2020-11-01 11:40 | disposition home or self-care (01) ==
LOC: EC 07:47
DX: I16.0 Hypertensive urgency (principal); K21.9 Gastro-esophageal reflux disease without esophagitis; I10 Essential (primary) hypertension; N40.0 Benign prostatic hyperplasia without lower urinary tract symptoms; Z87.891 Personal history of nicotine dependence
CPT/HCPCS: 36415; 93005; 85379; 83880; 80053; 83605; 83735; 84484; 85025; 85610; 85730; 71046; 70450; 99285; 96374; 96376; J0360